=== PATIENT | female | born 1975 | race Two or more races ===

== ENCOUNTER 2017-03-14 11:59 | Inpatient (IN) | payer MEDICAID ==
[~2017-03-14] VITALS: Ht 154.9 cm; Wt 96.3 kg
[~2017-03-14 11:59] MED LIST: INSUINJ2 SC; INSUINJ47 IJ
[2017-03-14] MEDS ORDERED: IBUPROFEN 600 MG TAB PO ONE (12:15)
[2017-03-14 12:29] LABS: Urine Bilirubin Negative (Negative); Urine Blood TRACE /uL (Negative); Urine Color Yellow (Yellow); Urine RBC 3 /hpf (0 - 4); Urine Squamous Epithelial Cell FEW /hpf (<5); Urine Urobilinogen Normal (Negative)
[2017-03-14 12:30] LABS: Urine Glucose 4+ mg/dL (Normal); Urine Ketone 1+ (Negative); Urine Nitrite POSITIVE (Negative)
[2017-03-14] MEDS ORDERED: SODIUM CHLORIDE 0.9% 1,000 ML IV ONE ×2 (12:33→13:19)
[2017-03-14 12:42] LABS: Basophils # (auto) 0 uL; Basophils % (auto) 0.2 % (0.0-2.0); CONDITION Y; Eosinophils # (auto) 0 uL; Hematocrit 36.4 % (36.0-46.0); Hemoglobin 12.4 g/dL (12.2-16.2); Lymphocytes # (auto) 1.3 uL; Lymphocytes % (auto) 7.2 % (10.0-50.0); Mean Corpuscular Hemoglobin 27.1 pg (28.0-32.0); Mean Corpuscular Hgb Conc. 34.1 g/dL (32.0-36.0); Mean Corpuscular Volume 79.6 fL (80.0-100.0); Mean Platelet Volume 9.6 fL (7.4-10.4); Monocytes # (auto) 0.8 uL; Monocytes % (auto) 4.5 % (0.0-12.0); Neutrophils # (auto) 16.4 uL; Neutrophils % (auto) 88.1 % (37.0-80.0); Platelet Count (auto) 353 10^3/uL (140-450); Red Cell Distribution Width 16.9 % (11.6-16.0); White Blood Cell 18.6 10^3/uL (4.4-10.8)
[2017-03-14 12:53] LABS: Albumin 3.2 g/dL (3.4-5.0); BUN/Creatinine Ratio 10.8; Calcium 8.5 mg/dL (8.5-10.1); Potassium 3.2 mmol/L (3.5-5.1)
[2017-03-14 12:55] LABS: Bilirubin, Total 0.9 mg/dL (0.2-1.0); Total Protein 8.2 g/dL (6.4-8.2)
[2017-03-14] MEDS ORDERED: POTASSIUM CHL 10% (20 MEQ/15ML) ORAL SOLN PO ONE (13:30)
[2017-03-14] MEDS ORDERED: cefTRIAXone 1GM/50ML D5W 50 ML IV ONE (13:30)
[2017-03-14] MEDS: SODIUM CHLORIDE 0.9% 1,000 ML IV SCH (14:30)
[2017-03-14] MEDS ORDERED: LORazepam 0.5 MG TAB PO PRN (15:45)
[2017-03-14] MEDS ORDERED: LACTULOSE 20Gm/30ML SOLN PO PRN (15:45)
[2017-03-14] MEDS ORDERED: TEMAZEPAM 15 MG CAP PO PRN (15:45)
[2017-03-14] MEDS ORDERED: MORPHINE SULFATE 4 MG/ML SYRG IV PRN (15:45)
[2017-03-14] MEDS ORDERED: PROMETHAZINE HCL 25 MG/ML 1ML IV PRN (15:45)
[2017-03-14] MEDS ORDERED: DEXTROSE (50%) 50ML SYRG IV PRN (15:45)
[2017-03-14] MEDS ORDERED: NITROGLYCERIN 0.4 MG SL TAB SL PRN (15:45)
[2017-03-14] MEDS: InsuLIN REG 1unit/0.01ml Soln (100units/ml) SC SCH ×3 (16:00→23:39)
[2017-03-14] MEDS: ENOXAPARIN SOD 40 MG/0.4 ML SYRINGE SC SCH (16:00)
[2017-03-14] MEDS: ACCU-CHEK COMFORT CURVE STRIP VI SCH ×3 (16:00→23:38)
[2017-03-14 18:49] VITALS: BP 136/82
[2017-03-14] MEDS: HYDROcodone-ACET 5/325MG TAB PO PRN (20:05)
[2017-03-14 22:00] VITALS: BP 136/82
[2017-03-14] MEDS: ACETAMINOPHEN 500 MG TAB PO PRN (22:08)
[2017-03-14] MEDS ORDERED: GLIM2TAB33 PO (22:49)
[2017-03-14] MEDS ORDERED: LISI-646 PO (22:49)
[2017-03-14] MEDS ORDERED: NIFE30TA76 PO (22:49)
[2017-03-14] MEDS ORDERED: INSLANTI SC (22:49)
[2017-03-15] MEDS: SODIUM CHLORIDE 0.9% 1,000 ML IV SCH ×4 (02:10→20:48)
[2017-03-15] MEDS: ACETAMINOPHEN 500 MG TAB PO PRN ×2 (03:49→23:50)
[2017-03-15] MEDS: ACCU-CHEK COMFORT CURVE STRIP VI SCH ×6 (04:00→23:34)
[2017-03-15] MEDS: HYDROcodone-ACET 5/325MG TAB PO PRN ×3 (04:00→17:50)
[2017-03-15] MEDS: InsuLIN REG 1unit/0.01ml Soln (100units/ml) SC SCH ×6 (04:01→23:33)
[2017-03-15] MEDS ORDERED: LEVOFLOXACIN 500MG 100 ML IV ONE ×2 (04:13→04:15)
[2017-03-15 05:00] VITALS: BP 142/86
[2017-03-15 06:42] LABS: Basophils # (auto) 0 uL; CONDITION Y; Eosinophils # (auto) 0 uL; Hematocrit 33.8 % (36.0-46.0); Hemoglobin 11.5 g/dL (12.2-16.2); Lymphocytes # (auto) 0.9 uL; Lymphocytes % (auto) 6.3 % (10.0-50.0); Mean Corpuscular Hemoglobin 27.1 pg (28.0-32.0); Mean Corpuscular Volume 79.7 fL (80.0-100.0); Mean Platelet Volume 10.2 fL (7.4-10.4); Monocytes # (auto) 0.6 uL; Monocytes % (auto) 3.9 % (0.0-12.0); Neutrophils # (auto) 13.1 uL; Neutrophils % (auto) 89.8 % (37.0-80.0); Platelet Count (auto) 272 10^3/uL (140-450); SUSPECT SEE PRINTOUT; White Blood Cell 14.6 10^3/uL (4.4-10.8)
[2017-03-15 07:04] LABS: Albumin 2.4 g/dL (3.4-5.0); BUN/Creatinine Ratio 14.9; Bilirubin, Total 0.9 mg/dL (0.2-1.0); Calcium 8.1 mg/dL (8.5-10.1); Potassium 3.2 mmol/L (3.5-5.1); Total Protein 6.9 g/dL (6.4-8.2)
[2017-03-15] MEDS ORDERED: PIPERACILLIN-TAZOB 3.375GM 100 ML IV ONE (08:30)
[2017-03-15 09:00] VITALS: BP 126/70
[2017-03-15] MEDS: ENOXAPARIN SOD 40 MG/0.4 ML SYRINGE SC SCH (09:26)
[2017-03-15] MEDS: PANTOPRAZOLE 40 MG TAB PO SCH (09:26)
[2017-03-15 13:00] VITALS: BP 118/74
[2017-03-15] MEDS: PIPERACILLIN-TAZOB 3.375GM 100 ML IV SCH ×2 (15:48→20:29)
[2017-03-15 17:00] VITALS: BP 123/88
[2017-03-15 20:00] VITALS: BP 130/80
[2017-03-15 22:00] VITALS: BP 130/80
[2017-03-15] MEDS ORDERED: POTASSIUM CHL 20 Meq TABLET PO ONE (22:30)
[2017-03-15] MEDS: MORPHINE SULFATE 4 MG/ML SYRG IV PRN (23:04)
[2017-03-16] MEDS: PIPERACILLIN-TAZOB 3.375GM 100 ML IV SCH ×4 (04:56→20:29)
[2017-03-16] MEDS: ACCU-CHEK COMFORT CURVE STRIP VI SCH ×6 (04:57→23:51)
[2017-03-16] MEDS: InsuLIN REG 1unit/0.01ml Soln (100units/ml) SC SCH ×6 (04:57→23:51)
[2017-03-16 05:00] VITALS: BP 136/81
[2017-03-16] MEDS: SODIUM CHLORIDE 0.9% 1,000 ML IV SCH ×3 (07:35→23:35)
[2017-03-16 08:00] VITALS: BP 133/76
[2017-03-16] MEDS: ACETAMINOPHEN 500 MG TAB PO PRN ×3 (08:14→23:53)
[2017-03-16] MEDS: PANTOPRAZOLE 40 MG TAB PO SCH (09:01)
[2017-03-16] MEDS: ENOXAPARIN SOD 40 MG/0.4 ML SYRINGE SC SCH (09:02)
[2017-03-16] MEDS ORDERED: LEVOFLOXACIN 500MG 100 ML IV SCH (10:00)
[2017-03-16 13:00] VITALS: BP 122/63
[2017-03-16 16:50] VITALS: BP 144/70
[2017-03-16 20:00] VITALS: BP 141/73
[2017-03-16 21:11] VITALS: BP 141/73
[2017-03-16] MEDS ORDERED: DEXTROSE (50%) 50ML SYRG IV PRN (23:15)
[2017-03-17] MEDS ORDERED: ACCU-CHEK COMFORT CURVE STRIP VI SCH ×2
[2017-03-17] MEDS: PIPERACILLIN-TAZOB 3.375GM 100 ML IV SCH ×4 (02:34→20:46)
[2017-03-17 05:33] VITALS: BP 137/72
[2017-03-17] MEDS: InsuLIN REG 1unit/0.01ml Soln (100units/ml) SC SCH ×4 (05:52→23:44)
[2017-03-17] MEDS: GLIMEPIRIDE 2 MG TAB PO SCH (06:39)
[2017-03-17] MEDS: ACCU-CHEK COMFORT CURVE STRIP VI SCH ×4 (07:07→23:44)
[2017-03-17] MEDS: SODIUM CHLORIDE 0.9% 1,000 ML IV SCH ×2 (07:35→16:26)
[2017-03-17 08:00] VITALS: BP 151/74
[2017-03-17] MEDS: PANTOPRAZOLE 40 MG TAB PO SCH (09:30)
[2017-03-17] MEDS: NIFEdipine ER 30 MG TAB PO SCH (09:30)
[2017-03-17] MEDS: ENOXAPARIN SOD 40 MG/0.4 ML SYRINGE SC SCH (09:31)
[2017-03-17] MEDS: LISINOPRIL 10 MG TAB PO SCH (09:31)
[2017-03-17 09:35] VITALS: BP 151/74
[2017-03-17] MEDS ORDERED: INSULIN DETEMIR(LEVEMIR) 1unit/0.01ml Soln (100units/ml) SC SCH (10:00)
[2017-03-17 12:13] VITALS: BP 136/75
[2017-03-17] MEDS: ACETAMINOPHEN 500 MG TAB PO PRN (12:19)
[2017-03-17 16:35] VITALS: BP 127/71
[2017-03-17] MEDS: MORPHINE SULFATE 4 MG/ML SYRG IV PRN (19:38)
[2017-03-17 21:30] VITALS: BP 130/62
[2017-03-17] MEDS: INSULIN DETEMIR(LEVEMIR) 1unit/0.01ml Soln (100units/ml) SC SCH (21:46)
[2017-03-18] VITALS (7 sets, daily range): BP systolic 130–145; BP diastolic 62–77
[2017-03-18] MEDS: PIPERACILLIN-TAZOB 3.375GM 100 ML IV SCH ×4 (02:33→21:28)
[2017-03-18] MEDS: SODIUM CHLORIDE 0.9% 1,000 ML IV SCH ×3 (02:52→15:35)
[2017-03-18] MEDS: ACCU-CHEK COMFORT CURVE STRIP VI SCH ×3 (05:18→17:55)
[2017-03-18] MEDS: GLIMEPIRIDE 2 MG TAB PO SCH (06:04)
[2017-03-18] MEDS: InsuLIN REG 1unit/0.01ml Soln (100units/ml) SC SCH ×3 (06:05→17:55)
[2017-03-18] MEDS: ENOXAPARIN SOD 40 MG/0.4 ML SYRINGE SC SCH (10:22)
[2017-03-18] MEDS: LISINOPRIL 10 MG TAB PO SCH (10:23)
[2017-03-18] MEDS: PANTOPRAZOLE 40 MG TAB PO SCH (10:24)
[2017-03-18] MEDS: NIFEdipine ER 30 MG TAB PO SCH (10:24)
[2017-03-18] MEDS: INSULIN DETEMIR(LEVEMIR) 1unit/0.01ml Soln (100units/ml) SC SCH ×2 (10:29→21:29)
[2017-03-18] MEDS: MORPHINE SULFATE 4 MG/ML SYRG IV PRN (19:20)
[2017-03-18] MEDS: ACYCLOVIR 400 MG TAB PO SCH (21:29)
[2017-03-19] VITALS (7 sets, daily range): BP systolic 128–141; BP diastolic 70–83
[2017-03-19] MEDS: PIPERACILLIN-TAZOB 3.375GM 100 ML IV SCH (03:16)
[2017-03-19] MEDS: ACCU-CHEK COMFORT CURVE STRIP VI SCH ×4 (06:00→18:00)
[2017-03-19] MEDS: InsuLIN REG 1unit/0.01ml Soln (100units/ml) SC SCH ×4 (06:00→18:00)
[2017-03-19] MEDS: GLIMEPIRIDE 2 MG TAB PO SCH (06:37)
[2017-03-19] MEDS: SODIUM CHLORIDE 0.9% 1,000 ML IV SCH ×2 (06:37→15:35)
[2017-03-19] MEDS ORDERED: cefTRIAXone 1GM/50ML D5W 50 ML IV ONE (09:45)
[2017-03-19] MEDS: PANTOPRAZOLE 40 MG TAB PO SCH (09:56)
[2017-03-19] MEDS: LISINOPRIL 10 MG TAB PO SCH (09:57)
[2017-03-19] MEDS: NIFEdipine ER 30 MG TAB PO SCH (09:58)
[2017-03-19] MEDS: ACYCLOVIR 400 MG TAB PO SCH ×2 (09:58→21:54)
[2017-03-19] MEDS: ENOXAPARIN SOD 40 MG/0.4 ML SYRINGE SC SCH (09:59)
[2017-03-19] MEDS: INSULIN DETEMIR(LEVEMIR) 1unit/0.01ml Soln (100units/ml) SC SCH ×2 (10:17→22:24)
[2017-03-19] MEDS: MORPHINE SULFATE 4 MG/ML SYRG IV PRN (20:53)
[2017-03-20] MEDS: ACCU-CHEK COMFORT CURVE STRIP VI SCH ×3 (00:20→11:46)
[2017-03-20] MEDS: SODIUM CHLORIDE 0.9% 1,000 ML IV SCH (02:27)
[2017-03-20 05:46] VITALS: BP 117/72
[2017-03-20] MEDS: InsuLIN REG 1unit/0.01ml Soln (100units/ml) SC SCH ×4 (06:00→11:47)
[2017-03-20] MEDS: GLIMEPIRIDE 2 MG TAB PO SCH (06:31)
[2017-03-20 08:00] VITALS: BP 143/82
[2017-03-20 08:30] VITALS: BP 143/89
[2017-03-20] MEDS ORDERED: cefTRIAXone 1GM/50ML D5W 50 ML IV SCH (09:00)
[2017-03-20] MEDS: PANTOPRAZOLE 40 MG TAB PO SCH (09:06)
[2017-03-20] MEDS: NIFEdipine ER 30 MG TAB PO SCH (09:06)
[2017-03-20] MEDS: INSULIN DETEMIR(LEVEMIR) 1unit/0.01ml Soln (100units/ml) SC SCH (09:07)
[2017-03-20] MEDS: LISINOPRIL 10 MG TAB PO SCH (09:07)
[2017-03-20] MEDS: ENOXAPARIN SOD 40 MG/0.4 ML SYRINGE SC SCH (09:07)
[2017-03-20] MEDS: ACYCLOVIR 400 MG TAB PO SCH (09:07)
[2017-03-20 10:46] VITALS: BP 143/82
[2017-03-20 11:33] VITALS: BP 128/76
== END 2017-03-20 11:45 | disposition home or self-care (01) | DRG 720 ==
LOC: ER 11:59 → EDBD 11:59 → TELE 12:00 → TELE-CENTR 18:18
PROVIDERS: ADMIT Internal Medicine; ATTEND Internal Medicine
DX: A41.9 Sepsis, unspecified organism (principal); E11.65 Type 2 diabetes mellitus with hyperglycemia; N10 Acute pyelonephritis; I10 Essential (primary) hypertension; E87.6 Hypokalemia; F17.210 Nicotine dependence, cigarettes, uncomplicated; B00.9 Herpesviral infection, unspecified; E44.1 Mild protein-calorie malnutrition; Z68.41 Body mass index [BMI] 40.0-44.9, adult; E86.0 Dehydration; Z82.49 Family history of ischemic heart disease and other diseases of the circulatory system; Z83.3 Family history of diabetes mellitus; Z85.6 Personal history of leukemia; Z91.14 Patient's other noncompliance with medication regimen; E66.9 Obesity, unspecified; Z71.89 Other specified counseling; Z79.4 Long term (current) use of insulin; E87.1 Hypo-osmolality and hyponatremia
CPT/HCPCS: 36415; 71010; 74000; 76775; 80053; 80061; 81001; 81025; 82962; 83036; 83605; 83735; 84443; 85025; 85652; 87040; 87086; 93005; 94761; 96361; 96365; J0133; J0696; J1815; J1956; J2543

== ENCOUNTER 2017-04-14 00:45 | Inpatient (IN) | payer MEDICAID ==
[~2017-04-14] VITALS: Ht 152.4 cm; Wt 97.2 kg
[~2017-04-14 00:45] MED LIST changes: +GLIM2TAB33 PO; +INSLANTI SC; -INSUINJ2 SC; -INSUINJ47 IJ; +LISI-646 PO; +NIFE30TA76 PO
[2017-04-14] MEDS ORDERED: ACETAMINOPHEN 325 MG TAB PO ONE ×2 (01:23→01:30)
[2017-04-14] MEDS ORDERED: PROMETHAZINE HCL 25 MG/ML 1ML ONE (01:23)
[2017-04-14] MEDS ORDERED: SODIUM CHLORIDE 0.9% 1,000 ML IV ONE ×2 (01:30→10:45)
[2017-04-14] MEDS: PROMETHAZINE HCL 25 MG/ML 1ML IV PRN ×3 (01:44→11:13)
[2017-04-14 01:50] LABS: CONDITION Y; DEFINITIVE SEE PRINTOUT; Hematocrit 39.2 % (36.0-46.0); Hemoglobin 12.8 g/dL (12.2-16.2); Mean Corpuscular Hemoglobin 26.3 pg (28.0-32.0); Mean Corpuscular Hgb Conc. 32.6 g/dL (32.0-36.0); Mean Corpuscular Volume 80.6 fL (80.0-100.0); Mean Platelet Volume 10.3 fL (7.4-10.4); Platelet Count (auto) 278 10^3/uL (140-450); Red Cell Distribution Width 15.6 % (11.6-16.0); SUSPECT SEE PRINTOUT; White Blood Cell 18.5 10^3/uL (4.4-10.8)
[2017-04-14 02:05] LABS: Metamyelocytes % 0; Promyelocytes % 0; Reactive Lymphocytes 0
[2017-04-14 02:10] LABS: INR 1.07 (0.9-1.15); Partial Thromboplastin Time 30.1 sec (22.64-33.71); Prothrombin Time 11.7 sec (9.37-12.3)
[2017-04-14 02:13] LABS: Albumin 2.9 g/dL (3.4-5.0); Calcium 8.4 mg/dL (8.5-10.1); Magnesium 2.1 mg/dL (1.6-2.6); Potassium 3.8 mmol/L (3.5-5.1)
[2017-04-14 02:17] LABS: BUN/Creatinine Ratio 12.8; Bilirubin, Total 1.1 mg/dL (0.2-1.0); Total Protein 8.5 g/dL (6.4-8.2)
[2017-04-14] MEDS ORDERED: MORPHINE SULFATE 4 MG/ML SYRG ONE (02:30)
[2017-04-14 02:35] LABS: Myelocytes % 1; Platelet Estimate Adequate; RBC Morphology Normal
[2017-04-14] MEDS ORDERED: MORPHINE SULFATE 4 MG/ML SYRG IV ONE ×2 (02:45→07:00)
[2017-04-14] MEDS ORDERED: VANCOMYCIN 1GM/250ML D5W 250 ML IV ONE (05:45)
[2017-04-14] MEDS ORDERED: InsuLIN REG 1unit/0.01ml Soln (100units/ml) IV ONE (05:45)
[2017-04-14] MEDS ORDERED: SODIUM CHLORIDE 0.9% 2,700 ML IV ONE (06:00)
[2017-04-14] MEDS ORDERED: SODIUM CHLORIDE 0.9% 1,700 ML IV ONE (06:00)
[2017-04-14] MEDS ORDERED: ONDANSETRON HCL 4 MG/2 ML VIAL IV PRN (10:30)
[2017-04-14] MEDS ORDERED: NITROGLYCERIN 0.4 MG SL TAB SL PRN (10:30)
[2017-04-14] MEDS ORDERED: DEXTROSE (50%) 50ML SYRG IV PRN (10:45)
[2017-04-14] MEDS ORDERED: NIFEdipine ER 30 MG TAB PO ONE (10:45)
[2017-04-14] MEDS ORDERED: INSULIN DETEMIR(LEVEMIR) 1unit/0.01ml Soln (100units/ml) SC ONE (10:45)
[2017-04-14] MEDS: InsuLIN REG 1unit/0.01ml Soln (100units/ml) SC SCH ×2 (12:01→18:13)
[2017-04-14] MEDS: ACCU-CHEK COMFORT CURVE STRIP VI SCH ×2 (12:01→18:13)
[2017-04-14] MEDS: GLIMEPIRIDE 2 MG TAB PO SCH ×2 (13:00→18:13)
[2017-04-14] MEDS ORDERED: VANCOMYCIN PER PHARMACY 0 MG IV SCH (15:00)
[2017-04-14] MEDS ORDERED: PIPERACILLIN-TAZOB 3.375GM 100 ML IV ONE (15:15)
[2017-04-14 15:32] LABS: INR 1.05 (0.9-1.15); Prothrombin Time 11.4 sec (9.37-12.3)
[2017-04-14 15:38] LABS: BUN/Creatinine Ratio 19.8; Calcium 7.5 mg/dL (8.5-10.1); Potassium 3.8 mmol/L (3.5-5.1)
[2017-04-14] MEDS ORDERED: VANCOMYCIN 1,250 MG in D5W 5% 250 ML IV ONE (16:00)
[2017-04-14] MEDS ORDERED: MIDAZOLAM HCL 5 MG/ML-1ML VIAL ONE (16:21)
[2017-04-14] MEDS ORDERED: fentaNYL CITRATE 100 MCG/2 ML VL ONE (16:22)
[2017-04-14] MEDS ORDERED: LIDOCAINE 2%HCL (LOCAL ANESTH.) INJ 20ML MDV ONE (16:24)
[2017-04-14 17:00] VITALS: BP 144/71
[2017-04-14] MEDS ORDERED: PIPERACILLIN-TAZOB 3.375GM 100 ML IV SCH (18:00)
[2017-04-14 20:00] VITALS: BP 132/67
[2017-04-14] MEDS: PIPERACILLIN-TAZOB 3.375GM 100 ML IV SCH (20:43)
[2017-04-14 22:00] VITALS: BP 132/67
[2017-04-14] MEDS: MORPHINE SULF INJ 2 MG/ML SYRINGE 1ML IV PRN (22:21)
[2017-04-14] MEDS: INSULIN DETEMIR(LEVEMIR) 1unit/0.01ml Soln (100units/ml) SC SCH (22:35)
[2017-04-15] MEDS: ACCU-CHEK COMFORT CURVE STRIP VI SCH ×4 (00:25→18:16)
[2017-04-15] MEDS: InsuLIN REG 1unit/0.01ml Soln (100units/ml) SC SCH ×4 (00:29→18:00)
[2017-04-15] MEDS: MORPHINE SULF INJ 2 MG/ML SYRINGE 1ML IV PRN ×5 (02:00→20:54)
[2017-04-15] MEDS: PIPERACILLIN-TAZOB 3.375GM 100 ML IV SCH ×4 (02:00→23:23)
[2017-04-15 05:00] VITALS: BP 123/64
[2017-04-15 06:14] LABS: White Blood Cell 18.3 10^3/uL (4.4-10.8)
[2017-04-15 06:15] LABS: CONDITION Y; DEFINITIVE SEE PRINTOUT; Hematocrit 31.1 % (36.0-46.0); Hemoglobin 10.4 g/dL (12.2-16.2); Mean Corpuscular Hemoglobin 26.6 pg (28.0-32.0); Mean Corpuscular Hgb Conc. 33.3 g/dL (32.0-36.0); Mean Corpuscular Volume 79.9 fL (80.0-100.0); Mean Platelet Volume 11.5 fL (7.4-10.4); Platelet Count (auto) 227 10^3/uL (140-450); Red Cell Distribution Width 15.9 % (11.6-16.0); SUSPECT SEE PRINTOUT
[2017-04-15 06:53] LABS: Metamyelocytes % 0; Myelocytes % 0; Promyelocytes % 0; Reactive Lymphocytes 0
[2017-04-15 07:08] LABS: BUN/Creatinine Ratio 19.1; Bilirubin, Total 0.5 mg/dL (0.2-1.0); Calcium 7.6 mg/dL (8.5-10.1); Potassium 3.2 mmol/L (3.5-5.1); Total Protein 6.6 g/dL (6.4-8.2)
[2017-04-15 08:00] VITALS: BP 131/70
[2017-04-15] MEDS: VANCOMYCIN 1,250 MG in D5W 5% 250 ML IV SCH ×2 (08:38→20:45)
[2017-04-15] MEDS: GLIMEPIRIDE 2 MG TAB PO SCH ×3 (08:49→18:00)
[2017-04-15 09:00] VITALS: BP 131/70
[2017-04-15 09:15] LABS: Hypochromia Slight; Platelet Estimate Adequate
[2017-04-15] MEDS ORDERED: NIFEdipine ER 30 MG TAB PO SCH (10:00)
[2017-04-15] MEDS: LISINOPRIL 20 MG TAB PO SCH (10:56)
[2017-04-15] MEDS: LACTULOSE 20Gm/30ML SOLN PO SCH (11:06)
[2017-04-15] MEDS: PROMETHAZINE HCL 25 MG/ML 1ML IV PRN ×2 (12:46→20:55)
[2017-04-15 13:00] VITALS: BP 115/60
[2017-04-15 18:47] LABS: Urine Bilirubin Negative (Negative); Urine Blood 2+ /uL (Negative); Urine Color Yellow (Yellow); Urine Glucose Normal (Normal); Urine Ketone Negative (Negative); Urine Nitrite Negative (Negative); Urine RBC 18 /hpf (0 - 4); Urine Squamous Epithelial Cell FEW /hpf (<5); Urine WBC Clumps PRESENT /hpf (None Seen); Urine pH 5.5 (5.0-8.0)
[2017-04-15 20:00] VITALS: BP 121/93
[2017-04-15] MEDS: INSULIN DETEMIR(LEVEMIR) 1unit/0.01ml Soln (100units/ml) SC SCH (21:37)
[2017-04-15 22:00] VITALS: BP 121/93
[2017-04-16] MEDS: ACCU-CHEK COMFORT CURVE STRIP VI SCH ×4 (00:21→16:55)
[2017-04-16] MEDS: PROMETHAZINE HCL 25 MG/ML 1ML IV PRN (01:32)
[2017-04-16] MEDS: MORPHINE SULF INJ 2 MG/ML SYRINGE 1ML IV PRN ×3 (01:32→13:41)
[2017-04-16 05:00] VITALS: BP 111/53
[2017-04-16] MEDS ORDERED: POTASSIUM CHL 20 Meq TABLET PO ONE (05:00)
[2017-04-16] MEDS: InsuLIN REG 1unit/0.01ml Soln (100units/ml) SC SCH ×4 (05:14→17:13)
[2017-04-16] MEDS: PIPERACILLIN-TAZOB 3.375GM 100 ML IV SCH ×4 (05:14→22:36)
[2017-04-16 08:58] VITALS: BP 126/72
[2017-04-16] MEDS: LACTULOSE 20Gm/30ML SOLN PO SCH (09:13)
[2017-04-16] MEDS: VANCOMYCIN 1,250 MG in D5W 5% 250 ML IV SCH ×2 (09:14→21:00)
[2017-04-16] MEDS: LISINOPRIL 20 MG TAB PO SCH (09:15)
[2017-04-16] MEDS: GLIMEPIRIDE 2 MG TAB PO SCH ×3 (09:23→16:55)
[2017-04-16 12:18] VITALS: BP 128/70
[2017-04-16 16:13] VITALS: BP 131/77
[2017-04-16] MEDS: HYDROcodone-ACET 5/325MG TAB PO PRN (21:10)
[2017-04-16] MEDS ORDERED: LEVOFLOXACIN 500 MG TAB PO ONE (21:45)
[2017-04-16] MEDS ORDERED: CEPHALEXIN 250 MG CAP PO ONE (21:45)
[2017-04-16 22:00] VITALS: BP 136/62
[2017-04-16] MEDS: INSULIN DETEMIR(LEVEMIR) 1unit/0.01ml Soln (100units/ml) SC SCH (22:35)
[2017-04-17] MEDS: ACCU-CHEK COMFORT CURVE STRIP VI SCH ×4 (00:20→18:00)
[2017-04-17] MEDS: InsuLIN REG 1unit/0.01ml Soln (100units/ml) SC SCH ×4 (00:31→18:37)
[2017-04-17] MEDS: PIPERACILLIN-TAZOB 3.375GM 100 ML IV SCH ×3 (04:32→17:35)
[2017-04-17 05:00] VITALS: BP 133/74
[2017-04-17 06:27] LABS: Basophils # (auto) 0 uL; Basophils % (auto) 0.2 % (0.0-2.0); CONDITION Y; DEFINITIVE SEE PRINTOUT; Eosinophils # (auto) 0.1 uL; Eosinophils % (auto) 0.9 % (0.0-7.0); Hematocrit 29.2 % (36.0-46.0); Hemoglobin 9.7 g/dL (12.2-16.2); Lymphocytes # (auto) 1.1 uL; Lymphocytes % (auto) 11.8 % (10.0-50.0); Mean Corpuscular Hemoglobin 26.5 pg (28.0-32.0); Mean Corpuscular Hgb Conc. 33.2 g/dL (32.0-36.0); Mean Corpuscular Volume 79.8 fL (80.0-100.0); Mean Platelet Volume 10.3 fL (7.4-10.4); Monocytes # (auto) 0.6 uL; Monocytes % (auto) 6.7 % (0.0-12.0); Neutrophils # (auto) 7.8 uL; Neutrophils % (auto) 80.4 % (37.0-80.0); Platelet Count (auto) 230 10^3/uL (140-450); Red Cell Distribution Width 15.9 % (11.6-16.0); White Blood Cell 9.7 10^3/uL (4.4-10.8)
[2017-04-17 06:47] LABS: BUN/Creatinine Ratio 15.8; Calcium 8.1 mg/dL (8.5-10.1)
[2017-04-17 06:52] LABS: Potassium 2.9 mmol/L (3.5-5.1)
[2017-04-17 08:00] VITALS: BP 117/63
[2017-04-17 08:28] VITALS: BP 117/63
[2017-04-17] MEDS: GLIMEPIRIDE 2 MG TAB PO SCH ×3 (09:00→18:36)
[2017-04-17] MEDS: VANCOMYCIN 1,250 MG in D5W 5% 250 ML IV SCH ×2 (09:00→21:42)
[2017-04-17 09:11] LABS: Albumin 1.7 g/dL (3.4-5.0); BUN/Creatinine Ratio 14.7; Bilirubin, Total 0.7 mg/dL (0.2-1.0); Calcium 8.1 mg/dL (8.5-10.1)
[2017-04-17] MEDS ORDERED: POTASSIUM CHL 20 Meq TABLET PO ONE ×2 (09:15→10:00)
[2017-04-17] MEDS: LISINOPRIL 20 MG TAB PO SCH (09:39)
[2017-04-17] MEDS: LACTULOSE 20Gm/30ML SOLN PO SCH (09:40)
[2017-04-17 13:24] VITALS: BP 138/75
[2017-04-17 16:52] VITALS: BP 130/48
[2017-04-17] MEDS: MORPHINE SULF INJ 2 MG/ML SYRINGE 1ML IV PRN ×2 (17:36→20:50)
[2017-04-17 22:00] VITALS: BP 133/84
[2017-04-17] MEDS: INSULIN DETEMIR(LEVEMIR) 1unit/0.01ml Soln (100units/ml) SC SCH (22:49)
[2017-04-18] MEDS: PIPERACILLIN-TAZOB 3.375GM 100 ML IV SCH ×5 (00:06→23:52)
[2017-04-18] MEDS: MORPHINE SULF INJ 2 MG/ML SYRINGE 1ML IV PRN ×5 (02:20→20:09)
[2017-04-18 05:00] VITALS: BP 144/79
[2017-04-18] MEDS: ACCU-CHEK COMFORT CURVE STRIP VI SCH ×4 (06:01→18:13)
[2017-04-18] MEDS: InsuLIN REG 1unit/0.01ml Soln (100units/ml) SC SCH ×4 (06:02→18:14)
[2017-04-18 06:39] LABS: Basophils # (auto) 0 uL; Basophils % (auto) 0.3 % (0.0-2.0); CONDITION Y; DEFINITIVE SEE PRINTOUT; Eosinophils # (auto) 0.1 uL; Hematocrit 30.1 % (36.0-46.0); Lymphocytes # (auto) 1.7 uL; Mean Corpuscular Hemoglobin 26.6 pg (28.0-32.0); Mean Corpuscular Hgb Conc. 33.3 g/dL (32.0-36.0); Mean Corpuscular Volume 79.8 fL (80.0-100.0); Mean Platelet Volume 10.3 fL (7.4-10.4); Monocytes # (auto) 0.8 uL; Monocytes % (auto) 7.4 % (0.0-12.0); Neutrophils # (auto) 8.7 uL; Neutrophils % (auto) 76.3 % (37.0-80.0); Platelet Count (auto) 333 10^3/uL (140-450); Red Cell Distribution Width 15.7 % (11.6-16.0); White Blood Cell 11.4 10^3/uL (4.4-10.8)
[2017-04-18 06:57] LABS: BUN/Creatinine Ratio 9.7; Calcium 7.7 mg/dL (8.5-10.1); Potassium 3.7 mmol/L (3.5-5.1)
[2017-04-18 08:00] VITALS: BP 145/78
[2017-04-18 08:03] VITALS: BP 145/78
[2017-04-18] MEDS: GLIMEPIRIDE 2 MG TAB PO SCH ×3 (09:35→18:12)
[2017-04-18] MEDS: LISINOPRIL 20 MG TAB PO SCH (09:35)
[2017-04-18] MEDS: VANCOMYCIN 1,250 MG in D5W 5% 250 ML IV SCH ×2 (09:36→21:29)
[2017-04-18] MEDS: LACTULOSE 20Gm/30ML SOLN PO SCH (09:36)
[2017-04-18] MEDS: HYDROcodone-ACET 5/325MG TAB PO PRN ×2 (11:40→18:59)
[2017-04-18 12:11] VITALS: BP 153/92
[2017-04-18 16:23] VITALS: BP 136/72
[2017-04-18] MEDS: PROMETHAZINE HCL 25 MG/ML 1ML IV PRN (18:13)
[2017-04-18 21:38] VITALS: BP 137/70
[2017-04-18] MEDS: INSULIN DETEMIR(LEVEMIR) 1unit/0.01ml Soln (100units/ml) SC SCH (21:44)
[2017-04-18] MEDS ORDERED: LIDOCAINE 1% HCL (LOCAL ANESTH.) INJ 20ML MDV ID ONE (23:00)
[2017-04-19] MEDS: MORPHINE SULF INJ 2 MG/ML SYRINGE 1ML IV PRN ×4 (01:07→21:02)
[2017-04-19] MEDS: HYDROcodone-ACET 5/325MG TAB PO PRN (03:20)
[2017-04-19 04:34] VITALS: BP 150/81
[2017-04-19] MEDS: PIPERACILLIN-TAZOB 3.375GM 100 ML IV SCH ×3 (04:41→17:35)
[2017-04-19] MEDS: InsuLIN REG 1unit/0.01ml Soln (100units/ml) SC SCH ×4 (05:45→18:00)
[2017-04-19] MEDS: ACCU-CHEK COMFORT CURVE STRIP VI SCH ×4 (05:45→18:06)
[2017-04-19 06:51] LABS: Basophils # (auto) 0.1 uL; Basophils % (auto) 0.4 % (0.0-2.0); CONDITION Y; DEFINITIVE SEE PRINTOUT; Eosinophils # (auto) 0.1 uL; Hematocrit 28.7 % (36.0-46.0); Hemoglobin 9.5 g/dL (12.2-16.2); Lymphocytes # (auto) 1.9 uL; Lymphocytes % (auto) 13.4 % (10.0-50.0); Mean Corpuscular Hemoglobin 26.5 pg (28.0-32.0); Mean Corpuscular Volume 80.1 fL (80.0-100.0); Mean Platelet Volume 9.8 fL (7.4-10.4); Monocytes % (auto) 7.2 % (0.0-12.0); Neutrophils # (auto) 10.9 uL; Platelet Count (auto) 446 10^3/uL (140-450)
[2017-04-19 08:00] VITALS: BP 128/67
[2017-04-19 08:07] VITALS: BP 128/67
[2017-04-19] MEDS: SODIUM CHLOR 0.9% PF (SALINE LOCK) 10ML VIAL IV SCH ×2 (09:41→21:55)
[2017-04-19] MEDS: LISINOPRIL 20 MG TAB PO SCH (09:41)
[2017-04-19] MEDS: LACTULOSE 20Gm/30ML SOLN PO SCH (09:41)
[2017-04-19] MEDS: VANCOMYCIN 1,250 MG in D5W 5% 250 ML IV SCH ×2 (09:42→21:44)
[2017-04-19] MEDS: GLIMEPIRIDE 2 MG TAB PO SCH ×3 (09:43→18:00)
[2017-04-19 12:02] VITALS: BP 136/75
[2017-04-19] MEDS: PROMETHAZINE HCL 25 MG/ML 1ML IV PRN ×2 (12:22→18:59)
[2017-04-19] MEDS ORDERED: FLUCONAZOLE 200MG/100ML 100 ML IV ONE (13:15)
[2017-04-19 16:29] VITALS: BP 142/69
[2017-04-19 16:58] LABS: Basophils # (auto) 0.1 uL; Basophils % (auto) 0.5 % (0.0-2.0); CONDITION Y; DEFINITIVE SEE PRINTOUT; Eosinophils # (auto) 0.1 uL; Eosinophils % (auto) 0.6 % (0.0-7.0); Hematocrit 29.2 % (36.0-46.0); Hemoglobin 9.8 g/dL (12.2-16.2); Lymphocytes # (auto) 1.6 uL; Lymphocytes % (auto) 9.8 % (10.0-50.0); Mean Corpuscular Hemoglobin 26.5 pg (28.0-32.0); Mean Corpuscular Hgb Conc. 33.6 g/dL (32.0-36.0); Mean Platelet Volume 8.9 fL (7.4-10.4); Monocytes # (auto) 0.5 uL; Monocytes % (auto) 2.9 % (0.0-12.0); Neutrophils # (auto) 14.4 uL; Neutrophils % (auto) 86.2 % (37.0-80.0); Platelet Count (auto) 522 10^3/uL (140-450); Red Cell Distribution Width 15.7 % (11.6-16.0); White Blood Cell 16.8 10^3/uL (4.4-10.8)
[2017-04-19 17:17] LABS: BUN/Creatinine Ratio 7.8; Potassium 3.9 mmol/L (3.5-5.1)
[2017-04-19] MEDS ORDERED: ACETAMINOPHEN 500 MG TAB PO PRN (17:45)
[2017-04-19] MEDS: INSULIN DETEMIR(LEVEMIR) 1unit/0.01ml Soln (100units/ml) SC SCH (21:55)
[2017-04-19 23:21] VITALS: BP 148/70
[2017-04-20] MEDS: PIPERACILLIN-TAZOB 3.375GM 100 ML IV SCH ×4 (00:16→17:00)
[2017-04-20] MEDS: ACCU-CHEK COMFORT CURVE STRIP VI SCH ×4 (05:29→18:27)
[2017-04-20 05:42] VITALS: BP 140/74
[2017-04-20] MEDS: InsuLIN REG 1unit/0.01ml Soln (100units/ml) SC SCH ×4 (06:00→18:27)
[2017-04-20 06:36] LABS: Basophils # (auto) 0.1 uL; Basophils % (auto) 0.4 % (0.0-2.0); CONDITION Y; DEFINITIVE SEE PRINTOUT; Eosinophils # (auto) 0.1 uL; Eosinophils % (auto) 0.5 % (0.0-7.0); Hemoglobin 9.8 g/dL (12.2-16.2); Lymphocytes # (auto) 2.3 uL; Lymphocytes % (auto) 13.3 % (10.0-50.0); Mean Corpuscular Hemoglobin 26.8 pg (28.0-32.0); Mean Corpuscular Hgb Conc. 33.7 g/dL (32.0-36.0); Mean Corpuscular Volume 79.6 fL (80.0-100.0); Monocytes # (auto) 0.9 uL; Monocytes % (auto) 5.2 % (0.0-12.0); Neutrophils % (auto) 80.6 % (37.0-80.0); Platelet Count (auto) 558 10^3/uL (140-450); Red Cell Distribution Width 15.8 % (11.6-16.0); White Blood Cell 17.3 10^3/uL (4.4-10.8)
[2017-04-20] MEDS: GLIMEPIRIDE 2 MG TAB PO SCH ×3 (09:00→17:12)
[2017-04-20] MEDS: PROMETHAZINE HCL 25 MG/ML 1ML IV PRN ×2 (09:43→16:05)
[2017-04-20] MEDS: VANCOMYCIN 1,250 MG in D5W 5% 250 ML IV SCH ×2 (09:45→21:17)
[2017-04-20] MEDS: MORPHINE SULF INJ 2 MG/ML SYRINGE 1ML IV PRN ×4 (09:46→21:17)
[2017-04-20] MEDS: LISINOPRIL 20 MG TAB PO SCH (09:46)
[2017-04-20 10:00] VITALS: BP 151/79
[2017-04-20] MEDS: SODIUM CHLOR 0.9% PF (SALINE LOCK) 10ML VIAL IV SCH ×2 (10:00→23:14)
[2017-04-20] MEDS: LACTULOSE 20Gm/30ML SOLN PO SCH (10:00)
[2017-04-20] MEDS ORDERED: FLUCONAZOLE 200MG/100ML 100 ML IV SCH (10:00)
[2017-04-20] MEDS ORDERED: IOHEXOL 300 MG/ML 100ML BOTTLE IJ ONE (13:21)
[2017-04-20] MEDS ORDERED: MIDAZOLAM HCL 1MG/1ML-2 ML VIAL ONE (13:24)
[2017-04-20] MEDS ORDERED: fentaNYL CITRATE 100 MCG/2 ML VL ONE (13:25)
[2017-04-20 13:54] VITALS: BP 136/71
[2017-04-20 17:21] VITALS: BP 144/78
[2017-04-20] MEDS ORDERED: BACITRACIN TOP OINT 1 UD PKG TOP SCH (18:00)
[2017-04-20] MEDS ORDERED: MUPIROCIN 2% OINT 22GM TOP SCH ×2 (18:00)
[2017-04-20] MEDS: ALBUTEROL SULF 2.5 MG/0.5ML(0.5%) NEB SOLN NEB PRN (18:57)
[2017-04-20 21:57] VITALS: BP 149/71
[2017-04-20] MEDS: MUPIROCIN 2% OINT 22GM TOP SCH (22:00)
[2017-04-20] MEDS: INSULIN DETEMIR(LEVEMIR) 1unit/0.01ml Soln (100units/ml) SC SCH (23:21)
[2017-04-21] VITALS (7 sets, daily range): BP systolic 124–151; BP diastolic 68–79
[2017-04-21] MEDS: PIPERACILLIN-TAZOB 3.375GM 100 ML IV SCH ×5 (00:58→23:43)
[2017-04-21] MEDS: MORPHINE SULF INJ 2 MG/ML SYRINGE 1ML IV PRN ×7 (03:24→23:43)
[2017-04-21] MEDS: ACCU-CHEK COMFORT CURVE STRIP VI SCH ×5 (05:31→23:43)
[2017-04-21] MEDS: InsuLIN REG 1unit/0.01ml Soln (100units/ml) SC SCH ×5 (05:32→23:43)
[2017-04-21 06:14] LABS: Basophils # (auto) 0 uL; Basophils % (auto) 0.3 % (0.0-2.0); CONDITION Y; DEFINITIVE SEE PRINTOUT; Eosinophils # (auto) 0.1 uL; Eosinophils % (auto) 1.2 % (0.0-7.0); Hematocrit 28.1 % (36.0-46.0); Hemoglobin 9.3 g/dL (12.2-16.2); Lymphocytes # (auto) 1.8 uL; Lymphocytes % (auto) 15.8 % (10.0-50.0); Mean Corpuscular Hemoglobin 26.5 pg (28.0-32.0); Mean Corpuscular Volume 80.1 fL (80.0-100.0); Mean Platelet Volume 8.9 fL (7.4-10.4); Monocytes # (auto) 0.7 uL; Monocytes % (auto) 5.7 % (0.0-12.0); Platelet Count (auto) 649 10^3/uL (140-450); Red Cell Distribution Width 15.8 % (11.6-16.0); White Blood Cell 11.7 10^3/uL (4.4-10.8)
[2017-04-21 06:29] LABS: BUN/Creatinine Ratio 8.3; Potassium 3.7 mmol/L (3.5-5.1)
[2017-04-21] MEDS: GLIMEPIRIDE 2 MG TAB PO SCH ×3 (08:11→18:53)
[2017-04-21] MEDS: VANCOMYCIN 1,250 MG in D5W 5% 250 ML IV SCH ×2 (09:14→20:37)
[2017-04-21] MEDS: LACTULOSE 20Gm/30ML SOLN PO SCH (10:00)
[2017-04-21] MEDS: SODIUM CHLOR 0.9% PF (SALINE LOCK) 10ML VIAL IV SCH ×2 (10:00→22:07)
[2017-04-21] MEDS: MUPIROCIN 2% OINT 22GM TOP SCH ×2 (10:00→22:00)
[2017-04-21] MEDS: FLUCONAZOLE 200MG/100ML 100 ML IV SCH (11:40)
[2017-04-21] MEDS: LISINOPRIL 20 MG TAB PO SCH (11:42)
[2017-04-21] MEDS: ALBUTEROL SULF 2.5 MG/0.5ML(0.5%) NEB SOLN NEB PRN (14:03)
[2017-04-21] MEDS: HYDROcodone-ACET 5/325MG TAB PO PRN (18:53)
[2017-04-21] MEDS: INSULIN DETEMIR(LEVEMIR) 1unit/0.01ml Soln (100units/ml) SC SCH (22:11)
[2017-04-22 04:00] VITALS: BP 142/74
[2017-04-22] MEDS: MORPHINE SULF INJ 2 MG/ML SYRINGE 1ML IV PRN ×6 (04:24→20:58)
[2017-04-22] MEDS: ACCU-CHEK COMFORT CURVE STRIP VI SCH ×3 (05:32→17:54)
[2017-04-22] MEDS: PIPERACILLIN-TAZOB 3.375GM 100 ML IV SCH (05:32)
[2017-04-22] MEDS: InsuLIN REG 1unit/0.01ml Soln (100units/ml) SC SCH ×3 (05:32→17:54)
[2017-04-22 06:24] LABS: Basophils # (auto) 0 uL; Basophils % (auto) 0.3 % (0.0-2.0); CONDITION Y; DEFINITIVE SEE PRINTOUT; Eosinophils # (auto) 0.2 uL; Eosinophils % (auto) 1.4 % (0.0-7.0); Hematocrit 27.6 % (36.0-46.0); Hemoglobin 9.1 g/dL (12.2-16.2); Lymphocytes # (auto) 1.9 uL; Lymphocytes % (auto) 17.2 % (10.0-50.0); Mean Corpuscular Hemoglobin 26.4 pg (28.0-32.0); Mean Corpuscular Hgb Conc. 33.2 g/dL (32.0-36.0); Mean Corpuscular Volume 79.5 fL (80.0-100.0); Mean Platelet Volume 8.4 fL (7.4-10.4); Monocytes # (auto) 0.5 uL; Monocytes % (auto) 4.4 % (0.0-12.0); Neutrophils # (auto) 8.7 uL; Neutrophils % (auto) 76.7 % (37.0-80.0); White Blood Cell 11.3 10^3/uL (4.4-10.8)
[2017-04-22 06:40] LABS: Platelet Count (auto) 752 10^3/uL (140-450)
[2017-04-22 07:44] VITALS: BP 121/77
[2017-04-22 08:00] VITALS: BP 141/68
[2017-04-22] MEDS: GLIMEPIRIDE 2 MG TAB PO SCH ×3 (08:48→17:53)
[2017-04-22] MEDS: LACTULOSE 20Gm/30ML SOLN PO SCH (10:00)
[2017-04-22] MEDS: MUPIROCIN 2% OINT 22GM TOP SCH ×2 (10:00→18:41)
[2017-04-22] MEDS: VANCOMYCIN 1,250 MG in D5W 5% 250 ML IV SCH (10:09)
[2017-04-22] MEDS: LISINOPRIL 20 MG TAB PO SCH (10:09)
[2017-04-22] MEDS: SODIUM CHLOR 0.9% PF (SALINE LOCK) 10ML VIAL IV SCH ×2 (10:10→21:33)
[2017-04-22] MEDS: FLUCONAZOLE 200MG/100ML 100 ML IV SCH (11:18)
[2017-04-22 12:11] VITALS: BP 140/60
[2017-04-22] MEDS ORDERED: ERTAPENEM 1GM IN NS 50 ML IV ONE (13:00)
[2017-04-22] MEDS: HYDROcodone-ACET 5/325MG TAB PO PRN ×2 (13:10→19:51)
[2017-04-22] MEDS: INSULIN DETEMIR(LEVEMIR) 1unit/0.01ml Soln (100units/ml) SC SCH (21:33)
[2017-04-22 22:00] VITALS: BP 138/74
[2017-04-23] MEDS: ACCU-CHEK COMFORT CURVE STRIP VI SCH ×4 (00:02→17:45)
[2017-04-23] MEDS: MORPHINE SULF INJ 2 MG/ML SYRINGE 1ML IV PRN ×6 (00:03→22:01)
[2017-04-23 05:00] VITALS: BP 145/65
[2017-04-23] MEDS: InsuLIN REG 1unit/0.01ml Soln (100units/ml) SC SCH ×4 (05:24→17:45)
[2017-04-23] MEDS: HYDROcodone-ACET 5/325MG TAB PO PRN ×2 (05:24→20:18)
[2017-04-23 06:29] LABS: Basophils # (auto) 0.1 uL; Basophils % (auto) 0.4 % (0.0-2.0); CONDITION Y; DEFINITIVE SEE PRINTOUT; Eosinophils # (auto) 0.2 uL; Eosinophils % (auto) 1.4 % (0.0-7.0); Hematocrit 30.6 % (36.0-46.0); Hemoglobin 10.1 g/dL (12.2-16.2); Lymphocytes # (auto) 2.3 uL; Lymphocytes % (auto) 18.4 % (10.0-50.0); Mean Corpuscular Hemoglobin 26.8 pg (28.0-32.0); Mean Corpuscular Hgb Conc. 33.1 g/dL (32.0-36.0); Mean Corpuscular Volume 81.1 fL (80.0-100.0); Mean Platelet Volume 8.4 fL (7.4-10.4); Monocytes # (auto) 0.5 uL; Monocytes % (auto) 4.4 % (0.0-12.0); Neutrophils # (auto) 9.3 uL; Neutrophils % (auto) 75.4 % (37.0-80.0); Red Cell Distribution Width 15.5 % (11.6-16.0); White Blood Cell 12.3 10^3/uL (4.4-10.8)
[2017-04-23 06:50] LABS: Platelet Count (auto) 869 10^3/uL (140-450)
[2017-04-23 08:00] VITALS: BP 145/75
[2017-04-23 08:31] VITALS: BP 145/75
[2017-04-23] MEDS: LACTULOSE 20Gm/30ML SOLN PO SCH (10:00)
[2017-04-23] MEDS: MUPIROCIN 2% OINT 22GM TOP SCH ×2 (10:00→22:01)
[2017-04-23] MEDS: SODIUM CHLOR 0.9% PF (SALINE LOCK) 10ML VIAL IV SCH ×2 (10:00→22:01)
[2017-04-23] MEDS: FLUCONAZOLE 200MG/100ML 100 ML IV SCH (10:44)
[2017-04-23] MEDS: LISINOPRIL 20 MG TAB PO SCH (10:45)
[2017-04-23] MEDS: GLIMEPIRIDE 2 MG TAB PO SCH ×3 (12:55→17:42)
[2017-04-23 13:41] VITALS: BP 142/80
[2017-04-23] MEDS: ERTAPENEM 1GM IN NS 50 ML IV SCH (15:02)
[2017-04-23 16:40] VITALS: BP 157/74
[2017-04-23 22:00] VITALS: BP 146/73
[2017-04-23] MEDS: INSULIN DETEMIR(LEVEMIR) 1unit/0.01ml Soln (100units/ml) SC SCH (22:00)
[2017-04-23] MEDS ORDERED: TEMAZEPAM 15 MG CAP PO PRN (22:45)
[2017-04-24] MEDS: InsuLIN REG 1unit/0.01ml Soln (100units/ml) SC SCH ×3 (00:30→11:37)
[2017-04-24] MEDS: ACCU-CHEK COMFORT CURVE STRIP VI SCH ×3 (00:32→11:37)
[2017-04-24 01:54] VITALS: BP 146/73
[2017-04-24 05:00] VITALS: BP 136/71
[2017-04-24 08:46] VITALS: BP 134/80
[2017-04-24] MEDS: GLIMEPIRIDE 2 MG TAB PO SCH ×2 (08:46→12:22)
[2017-04-24] MEDS: MORPHINE SULF INJ 2 MG/ML SYRINGE 1ML IV PRN ×3 (09:23→15:52)
[2017-04-24] MEDS: ERTAPENEM 1GM IN NS 50 ML IV SCH (09:44)
[2017-04-24] MEDS: LACTULOSE 20Gm/30ML SOLN PO SCH ×2 (09:44→09:56)
[2017-04-24] MEDS: SODIUM CHLOR 0.9% PF (SALINE LOCK) 10ML VIAL IV SCH (09:45)
[2017-04-24] MEDS: LISINOPRIL 20 MG TAB PO SCH (09:45)
[2017-04-24] MEDS: MUPIROCIN 2% OINT 22GM TOP SCH (09:45)
[2017-04-24] MEDS: FLUCONAZOLE 200MG/100ML 100 ML IV SCH (11:14)
[2017-04-24 12:32] VITALS: BP 154/73
[2017-04-24 15:34] VITALS: BP 134/80
[2017-04-24 16:41] VITALS: BP 158/77
== END 2017-04-24 17:54 | DRG 469 ==
LOC: EDBD 00:45 → ER 00:47 → TELE 00:48 → TELE-E-ADS 13:42 → TELE-EAST 15:38
PROVIDERS: ADMIT Internal Medicine; ATTEND Internal Medicine
PROC: 0T903ZZ Drainage of Right Kidney, Percutaneous Approach (ICD-10-PCS; principal; 2017-04-20)
DX: N17.0 Acute kidney failure with tubular necrosis (principal); E11.40 Type 2 diabetes mellitus with diabetic neuropathy, unspecified; E44.0 Moderate protein-calorie malnutrition; E66.01 Morbid (severe) obesity due to excess calories; N15.1 Renal and perinephric abscess; I10 Essential (primary) hypertension; F17.210 Nicotine dependence, cigarettes, uncomplicated; E11.9 Type 2 diabetes mellitus without complications; K59.09 Other constipation; N12 Tubulo-interstitial nephritis, not specified as acute or chronic
CPT/HCPCS: 10022; 36415; 36569; 71010; 74150; 74176; 74177; 77012; 80048; 80053; 80202; 81001; 82962; 83605; 83690; 83735; 84702; 85007; 85025; 85027; 85610; 85730; 87040; 87077; 87081; 87086; 87186; 87205; 94640; 94761; 96365; 96375; 96376; C1729; J1335; J1450; J1815; J2250; J2405; J2543; J7060

== ENCOUNTER 2017-04-29 10:49 | Inpatient (IN) | payer MEDICAID ==
[~2017-04-29] VITALS: Ht 152.4 cm; Wt 98.3 kg
[2017-04-29] MEDS ORDERED: LIDOCAINE 2%HCL (LOCAL ANESTH.) INJ 20ML MDV ONE (11:02)
[2017-04-29] MEDS ORDERED: MIDAZOLAM HCL 1MG/1ML-2 ML VIAL ONE (11:28)
[2017-04-29] MEDS ORDERED: FLUMAZENIL 0.1 MG/ML INJ 10ML MDV IV ONE (11:28)
[2017-04-29] MEDS ORDERED: NALOXONE HCL 1MG/ML 2ML SYRINGE ONE (11:28)
[2017-04-29] MEDS ORDERED: fentaNYL CITRATE 100 MCG/2 ML VL ONE (11:29)
[2017-04-29 11:43] LABS: Basophils # (auto) 0.1 uL; CONDITION Y; DEFINITIVE SEE PRINTOUT; Eosinophils # (auto) 0.1 uL; Eosinophils % (auto) 0.7 % (0.0-7.0); Hematocrit 32.8 % (36.0-46.0); Hemoglobin 10.8 g/dL (12.2-16.2); Lymphocytes % (auto) 23.8 % (10.0-50.0); Mean Platelet Volume 7.6 fL (7.4-10.4); Monocytes # (auto) 0.5 uL; Neutrophils % (auto) 70.5 % (37.0-80.0); Red Cell Distribution Width 15.6 % (11.6-16.0); White Blood Cell 12.7 10^3/uL (4.4-10.8)
[2017-04-29 11:53] LABS: Albumin 2.6 g/dL (3.4-5.0); BUN/Creatinine Ratio 11.8; Bilirubin, Total 0.3 mg/dL (0.2-1.0); Calcium 9.3 mg/dL (8.5-10.1); Platelet Count (auto) 986 10^3/uL (140-450); Potassium 4.7 mmol/L (3.5-5.1); Total Protein 9.6 g/dL (6.4-8.2)
[2017-04-29] MEDS ORDERED: METOCLOPRAMIDE HCL 5MG/ml INJ 2ml VIAL IV ONE (16:15)
[2017-04-29] MEDS ORDERED: HYDROmorphone HCL 2 MG/ML VL IV ONE (16:15)
[2017-04-29] MEDS: SODIUM CHLORIDE 0.9% 1,000 ML IV SCH (17:24)
[2017-04-29] MEDS ORDERED: NITROGLYCERIN 0.4 MG SL TAB SL PRN (17:30)
[2017-04-29] MEDS ORDERED: DOCUSATE SOD 100 MG CAP PO PRN (17:30)
[2017-04-29] MEDS ORDERED: HYDROmorphone HCL 2 MG/ML VL IV PRN (20:30)
[2017-04-29 21:00] VITALS: BP 136/61
[2017-04-29] MEDS: FAMOTIDINE 20 MG TAB PO SCH (21:37)
[2017-04-29] MEDS: MORPHINE SULF INJ 2 MG/ML SYRINGE 1ML IV PRN (21:52)
[2017-04-29 22:00] VITALS: BP 138/77
[2017-04-29] MEDS ORDERED: DEXTROSE (50%) 50ML SYRG IV PRN (22:30)
[2017-04-29] MEDS: InsuLIN REG 1unit/0.01ml Soln (100units/ml) SC SCH (22:51)
[2017-04-29] MEDS: PIPERACILLIN-TAZOB 3.375GM 100 ML IV SCH (23:27)
[2017-04-29] MEDS: TEMAZEPAM 15 MG CAP PO PRN (23:45)
[2017-04-30 05:30] VITALS: BP 142/73
[2017-04-30] MEDS: PIPERACILLIN-TAZOB 3.375GM 100 ML IV SCH ×3 (05:42→17:38)
[2017-04-30] MEDS: ACCU-CHEK COMFORT CURVE STRIP VI SCH ×4 (05:51→22:17)
[2017-04-30] MEDS: InsuLIN REG 1unit/0.01ml Soln (100units/ml) SC SCH ×4 (05:51→22:17)
[2017-04-30] MEDS: MORPHINE SULF INJ 2 MG/ML SYRINGE 1ML IV PRN ×4 (05:54→21:48)
[2017-04-30 07:57] LABS: Albumin 2.2 g/dL (3.4-5.0); Bilirubin, Total 0.4 mg/dL (0.2-1.0); Calcium 8.6 mg/dL (8.5-10.1); Potassium 4.2 mmol/L (3.5-5.1); Total Protein 8.2 g/dL (6.4-8.2)
[2017-04-30 08:11] LABS: Basophils # (auto) 0.1 uL; Basophils % (auto) 0.8 % (0.0-2.0); CONDITION Y; DEFINITIVE SEE PRINTOUT; Eosinophils # (auto) 0.1 uL; Eosinophils % (auto) 0.6 % (0.0-7.0); Hematocrit 29.6 % (36.0-46.0); Hemoglobin 9.8 g/dL (12.2-16.2); Lymphocytes # (auto) 2.1 uL; Lymphocytes % (auto) 21.7 % (10.0-50.0); Mean Corpuscular Hemoglobin 25.8 pg (28.0-32.0); Mean Corpuscular Volume 78.1 fL (80.0-100.0); Mean Platelet Volume 7.8 fL (7.4-10.4); Monocytes # (auto) 0.5 uL; Monocytes % (auto) 5.2 % (0.0-12.0); Neutrophils % (auto) 71.7 % (37.0-80.0); Red Cell Distribution Width 15.4 % (11.6-16.0); White Blood Cell 9.7 10^3/uL (4.4-10.8)
[2017-04-30 08:24] LABS: Platelet Count (auto) 724 10^3/uL (140-450)
[2017-04-30 09:00] VITALS: BP 125/74
[2017-04-30] MEDS: SODIUM CHLORIDE 0.9% 1,000 ML IV SCH (09:56)
[2017-04-30] MEDS: HYDROcodone-ACET 10/325MG TAB PO PRN ×2 (10:02→17:45)
[2017-04-30] MEDS: FAMOTIDINE 20 MG TAB PO SCH ×2 (11:08→21:48)
[2017-04-30 13:00] VITALS: BP 136/70
[2017-04-30 17:16] VITALS: BP 141/80
[2017-04-30 20:00] VITALS: BP 127/76
[2017-04-30 22:00] VITALS: BP 127/76
[2017-05-01] MEDS: PIPERACILLIN-TAZOB 3.375GM 100 ML IV SCH ×4 (01:00→18:02)
[2017-05-01] MEDS: SODIUM CHLORIDE 0.9% 1,000 ML IV SCH ×2 (03:30→18:36)
[2017-05-01] MEDS: MORPHINE SULF INJ 2 MG/ML SYRINGE 1ML IV PRN ×5 (04:13→19:59)
[2017-05-01 05:00] VITALS: BP 141/77
[2017-05-01] MEDS: HYDROcodone-ACET 10/325MG TAB PO PRN ×5 (05:37→21:11)
[2017-05-01] MEDS: ACCU-CHEK COMFORT CURVE STRIP VI SCH ×4 (05:57→21:27)
[2017-05-01] MEDS: InsuLIN REG 1unit/0.01ml Soln (100units/ml) SC SCH ×4 (05:57→21:28)
[2017-05-01 08:00] VITALS: BP 120/67
[2017-05-01] MEDS: ONDANSETRON HCL 4 MG/2 ML VIAL IV PRN ×3 (10:22→18:51)
[2017-05-01] MEDS: FAMOTIDINE 20 MG TAB PO SCH ×2 (10:22→21:10)
[2017-05-01 11:37] LABS: Urine Bilirubin Negative (Negative); Urine Blood 2+ /uL (Negative); Urine Color Yellow (Yellow); Urine Glucose Normal (Normal); Urine Ketone Negative (Negative); Urine Nitrite Negative (Negative); Urine RBC 13 /hpf (0 - 4); Urine Squamous Epithelial Cell MANY /hpf (<5); Urine Urobilinogen Normal (Negative); Urine WBC Clumps PRESENT /hpf (None Seen); Urine pH 5.5 (5.0-8.0)
[2017-05-01 12:00] VITALS: BP 142/68
[2017-05-01 16:00] VITALS: BP 99/65
[2017-05-01] MEDS: TEMAZEPAM 15 MG CAP PO PRN (21:11)
[2017-05-01 21:51] VITALS: BP 130/74
[2017-05-02] MEDS: PIPERACILLIN-TAZOB 3.375GM 100 ML IV SCH ×4 (00:11→17:43)
[2017-05-02] MEDS: HYDROcodone-ACET 10/325MG TAB PO PRN ×4 (04:38→19:38)
[2017-05-02] MEDS: SODIUM CHLORIDE 0.9% 1,000 ML IV SCH (04:39)
[2017-05-02 04:46] VITALS: BP 119/65
[2017-05-02] MEDS: InsuLIN REG 1unit/0.01ml Soln (100units/ml) SC SCH ×4 (06:25→22:49)
[2017-05-02] MEDS: ACCU-CHEK COMFORT CURVE STRIP VI SCH ×4 (06:25→22:29)
[2017-05-02] MEDS: ONDANSETRON HCL 4 MG/2 ML VIAL IV PRN ×2 (08:31→17:42)
[2017-05-02] MEDS: MORPHINE SULF INJ 2 MG/ML SYRINGE 1ML IV PRN ×4 (08:31→23:14)
[2017-05-02 09:09] VITALS: BP 151/81
[2017-05-02] MEDS: FAMOTIDINE 20 MG TAB PO SCH ×2 (09:12→22:17)
[2017-05-02 13:00] VITALS: BP 131/75
[2017-05-02 17:00] VITALS: BP 123/67
[2017-05-02 21:46] VITALS: BP 131/78
[2017-05-02] MEDS: TEMAZEPAM 15 MG CAP PO PRN (22:17)
[2017-05-03] MEDS: PIPERACILLIN-TAZOB 3.375GM 100 ML IV SCH ×4 (00:34→18:06)
[2017-05-03] MEDS: SODIUM CHLORIDE 0.9% 1,000 ML IV SCH ×2 (04:16→22:20)
[2017-05-03 05:00] VITALS: BP 124/74
[2017-05-03] MEDS: HYDROcodone-ACET 10/325MG TAB PO PRN ×5 (05:12→22:20)
[2017-05-03] MEDS: ACCU-CHEK COMFORT CURVE STRIP VI SCH ×4 (05:19→22:00)
[2017-05-03] MEDS: InsuLIN REG 1unit/0.01ml Soln (100units/ml) SC SCH ×4 (05:20→22:00)
[2017-05-03 06:14] LABS: Albumin 2.3 g/dL (3.4-5.0); BUN/Creatinine Ratio 5.3; Bilirubin, Total 0.4 mg/dL (0.2-1.0); Calcium 8.9 mg/dL (8.5-10.1); Potassium 4.2 mmol/L (3.5-5.1); Total Protein 8.8 g/dL (6.4-8.2)
[2017-05-03 06:30] LABS: Basophils # (auto) 0 uL; Basophils % (auto) 0.7 % (0.0-2.0); CONDITION Y; DEFINITIVE SEE PRINTOUT; Eosinophils # (auto) 0.1 uL; Eosinophils % (auto) 2.1 % (0.0-7.0); Hematocrit 29.7 % (36.0-46.0); Hemoglobin 9.8 g/dL (12.2-16.2); Lymphocytes # (auto) 2.5 uL; Lymphocytes % (auto) 37.5 % (10.0-50.0); Mean Corpuscular Hgb Conc. 32.9 g/dL (32.0-36.0); Mean Corpuscular Volume 78.9 fL (80.0-100.0); Mean Platelet Volume 8.4 fL (7.4-10.4); Monocytes # (auto) 0.4 uL; Monocytes % (auto) 5.6 % (0.0-12.0); Neutrophils # (auto) 3.7 uL; Neutrophils % (auto) 54.1 % (37.0-80.0); Platelet Count (auto) 673 10^3/uL (140-450); Red Cell Distribution Width 15.2 % (11.6-16.0); White Blood Cell 6.8 10^3/uL (4.4-10.8)
[2017-05-03 08:40] VITALS: BP 122/74
[2017-05-03] MEDS: FAMOTIDINE 20 MG TAB PO SCH ×2 (09:23→22:21)
[2017-05-03] MEDS: ONDANSETRON HCL 4 MG/2 ML VIAL IV PRN ×3 (09:23→18:07)
[2017-05-03 11:50] VITALS: BP 140/84
[2017-05-03 16:21] VITALS: BP 146/90
[2017-05-03] MEDS: MORPHINE SULF INJ 2 MG/ML SYRINGE 1ML IV PRN (20:05)
[2017-05-03 22:00] VITALS: BP 136/80
[2017-05-03] MEDS: TEMAZEPAM 15 MG CAP PO PRN (22:21)
[2017-05-04] MEDS: PIPERACILLIN-TAZOB 3.375GM 100 ML IV SCH ×2 (00:11→06:12)
[2017-05-04] MEDS: HYDROcodone-ACET 10/325MG TAB PO PRN ×4 (04:59→21:30)
[2017-05-04 05:00] VITALS: BP 145/76
[2017-05-04] MEDS: InsuLIN REG 1unit/0.01ml Soln (100units/ml) SC SCH ×4 (06:12→21:29)
[2017-05-04] MEDS: ACCU-CHEK COMFORT CURVE STRIP VI SCH ×4 (06:12→21:29)
[2017-05-04 06:22] LABS: Basophils # (auto) 0 uL; Basophils % (auto) 0.7 % (0.0-2.0); CONDITION Y; DEFINITIVE SEE PRINTOUT; Eosinophils # (auto) 0.2 uL; Eosinophils % (auto) 2.3 % (0.0-7.0); Hematocrit 30.1 % (36.0-46.0); Hemoglobin 9.9 g/dL (12.2-16.2); Lymphocytes # (auto) 2.4 uL; Lymphocytes % (auto) 34.7 % (10.0-50.0); Mean Corpuscular Hemoglobin 25.4 pg (28.0-32.0); Mean Corpuscular Volume 76.8 fL (80.0-100.0); Mean Platelet Volume 7.9 fL (7.4-10.4); Monocytes # (auto) 0.5 uL; Monocytes % (auto) 6.5 % (0.0-12.0); Neutrophils # (auto) 3.9 uL; Neutrophils % (auto) 55.8 % (37.0-80.0); Platelet Count (auto) 639 10^3/uL (140-450); Red Cell Distribution Width 15.3 % (11.6-16.0)
[2017-05-04 06:50] LABS: Albumin 2.2 g/dL (3.4-5.0); BUN/Creatinine Ratio 3.9; Calcium 8.7 mg/dL (8.5-10.1)
[2017-05-04 06:53] LABS: Bilirubin, Total 0.2 mg/dL (0.2-1.0); Total Protein 8.5 g/dL (6.4-8.2)
[2017-05-04 09:36] VITALS: BP 130/78
[2017-05-04] MEDS: ONDANSETRON HCL 4 MG/2 ML VIAL IV PRN ×3 (09:57→21:29)
[2017-05-04] MEDS: FAMOTIDINE 20 MG TAB PO SCH ×2 (09:58→21:29)
[2017-05-04 12:33] VITALS: BP 146/86
[2017-05-04] MEDS: SODIUM CHLORIDE 0.9% 1,000 ML IV SCH (13:56)
[2017-05-04] MEDS ORDERED: cefTRIAXone 1GM/50ML D5W 50 ML IV ONE (15:30)
[2017-05-04 17:12] VITALS: BP 150/82
[2017-05-04] MEDS: TEMAZEPAM 15 MG CAP PO PRN (21:30)
[2017-05-04 22:29] VITALS: BP 152/58
[2017-05-05] MEDS: HYDROcodone-ACET 10/325MG TAB PO PRN ×4 (04:30→21:03)
[2017-05-05 05:00] VITALS: BP 156/82
[2017-05-05 05:39] LABS: Basophils # (auto) 0 uL; Basophils % (auto) 0.6 % (0.0-2.0); CONDITION Y; DEFINITIVE SEE PRINTOUT; Eosinophils # (auto) 0.2 uL; Eosinophils % (auto) 2.8 % (0.0-7.0); Hematocrit 32.9 % (36.0-46.0); Hemoglobin 10.6 g/dL (12.2-16.2); Lymphocytes # (auto) 2.9 uL; Mean Corpuscular Hemoglobin 25.3 pg (28.0-32.0); Mean Corpuscular Hgb Conc. 32.2 g/dL (32.0-36.0); Mean Corpuscular Volume 78.6 fL (80.0-100.0); Mean Platelet Volume 8.3 fL (7.4-10.4); Monocytes # (auto) 0.4 uL; Monocytes % (auto) 5.9 % (0.0-12.0); Neutrophils # (auto) 3.6 uL; Neutrophils % (auto) 49.7 % (37.0-80.0); Platelet Count (auto) 679 10^3/uL (140-450); Red Cell Distribution Width 15.3 % (11.6-16.0); White Blood Cell 7.2 10^3/uL (4.4-10.8)
[2017-05-05 05:56] LABS: Albumin 2.3 g/dL (3.4-5.0); Calcium 8.9 mg/dL (8.5-10.1); Potassium 4.1 mmol/L (3.5-5.1)
[2017-05-05 05:58] LABS: BUN/Creatinine Ratio 5.4
[2017-05-05 06:00] LABS: Bilirubin, Total 0.2 mg/dL (0.2-1.0)
[2017-05-05] MEDS: ACCU-CHEK COMFORT CURVE STRIP VI SCH ×4 (06:11→21:03)
[2017-05-05] MEDS: SODIUM CHLORIDE 0.9% 1,000 ML IV SCH (06:11)
[2017-05-05] MEDS: InsuLIN REG 1unit/0.01ml Soln (100units/ml) SC SCH ×4 (06:12→21:03)
[2017-05-05 08:00] VITALS: BP_SYST 141; BP_SYST 156; BP_DIAS 74; BP_DIAS 82
[2017-05-05] MEDS: cefTRIAXone 1GM/50ML D5W 50 ML IV SCH (08:46)
[2017-05-05] MEDS: FAMOTIDINE 20 MG TAB PO SCH ×2 (08:47→21:02)
[2017-05-05 12:00] VITALS: BP 145/73
[2017-05-05] MEDS: MORPHINE SULF INJ 2 MG/ML SYRINGE 1ML IV PRN (12:03)
[2017-05-05] MEDS: SOD CHL 0.45% 1,000 ML IV SCH ×2 (16:25→23:41)
[2017-05-05 17:00] VITALS: BP 142/70
[2017-05-05] MEDS: TEMAZEPAM 15 MG CAP PO PRN (21:02)
[2017-05-05 22:00] VITALS: BP 148/95
[2017-05-06] MEDS: HYDROcodone-ACET 10/325MG TAB PO PRN ×3 (01:00→16:14)
[2017-05-06 05:00] VITALS: BP 156/85
[2017-05-06] MEDS: SOD CHL 0.45% 1,000 ML IV SCH ×3 (05:49→21:44)
[2017-05-06] MEDS: ACCU-CHEK COMFORT CURVE STRIP VI SCH ×4 (05:49→21:43)
[2017-05-06] MEDS: InsuLIN REG 1unit/0.01ml Soln (100units/ml) SC SCH ×4 (05:50→21:43)
[2017-05-06 06:15] LABS: Basophils # (auto) 0.1 uL; Basophils % (auto) 0.6 % (0.0-2.0); CONDITION Y; DEFINITIVE SEE PRINTOUT; Eosinophils # (auto) 0.2 uL; Eosinophils % (auto) 2.4 % (0.0-7.0); Hematocrit 31.4 % (36.0-46.0); Hemoglobin 10.4 g/dL (12.2-16.2); Lymphocytes # (auto) 2.8 uL; Lymphocytes % (auto) 35.5 % (10.0-50.0); Mean Corpuscular Hemoglobin 25.8 pg (28.0-32.0); Mean Corpuscular Hgb Conc. 33.2 g/dL (32.0-36.0); Mean Corpuscular Volume 77.8 fL (80.0-100.0); Monocytes # (auto) 0.4 uL; Monocytes % (auto) 5.1 % (0.0-12.0); Neutrophils # (auto) 4.5 uL; Neutrophils % (auto) 56.4 % (37.0-80.0); Platelet Count (auto) 580 10^3/uL (140-450); Red Cell Distribution Width 15.6 % (11.6-16.0); White Blood Cell 7.9 10^3/uL (4.4-10.8)
[2017-05-06 06:36] LABS: Albumin 2.3 g/dL (3.4-5.0); BUN/Creatinine Ratio 5.2; Calcium 8.8 mg/dL (8.5-10.1); Potassium 4.1 mmol/L (3.5-5.1)
[2017-05-06 06:39] LABS: Bilirubin, Total 0.2 mg/dL (0.2-1.0); Total Protein 8.7 g/dL (6.4-8.2)
[2017-05-06 08:00] VITALS: BP 156/81
[2017-05-06] MEDS: cefTRIAXone 1GM/50ML D5W 50 ML IV SCH (09:20)
[2017-05-06] MEDS: MORPHINE SULF INJ 2 MG/ML SYRINGE 1ML IV PRN ×2 (10:05→14:58)
[2017-05-06] MEDS: ACETAMINOPHEN 325 MG TAB PO PRN (10:17)
[2017-05-06] MEDS: FAMOTIDINE 20 MG TAB PO SCH ×2 (10:17→21:44)
[2017-05-06 12:24] VITALS: BP 140/87
[2017-05-06 17:25] VITALS: BP 151/74
[2017-05-06] MEDS: PROMETHAZINE HCL 25 MG/ML 1ML IV PRN (17:54)
[2017-05-06 22:06] VITALS: BP 158/87
[2017-05-07] MEDS: MORPHINE SULF INJ 2 MG/ML SYRINGE 1ML IV PRN ×4 (04:59→19:13)
[2017-05-07] MEDS: HYDROcodone-ACET 10/325MG TAB PO PRN ×3 (05:06→20:00)
[2017-05-07 05:19] VITALS: BP 160/93
[2017-05-07 05:19] LABS: Basophils # (auto) 0 uL; Basophils % (auto) 0.6 % (0.0-2.0); CONDITION Y; DEFINITIVE SEE PRINTOUT; Eosinophils # (auto) 0.2 uL; Eosinophils % (auto) 2.1 % (0.0-7.0); Hematocrit 32.5 % (36.0-46.0); Hemoglobin 10.9 g/dL (12.2-16.2); Lymphocytes # (auto) 2.6 uL; Lymphocytes % (auto) 33.2 % (10.0-50.0); Mean Corpuscular Hemoglobin 25.8 pg (28.0-32.0); Mean Corpuscular Hgb Conc. 33.4 g/dL (32.0-36.0); Mean Corpuscular Volume 77.3 fL (80.0-100.0); Mean Platelet Volume 7.9 fL (7.4-10.4); Monocytes # (auto) 0.4 uL; Monocytes % (auto) 5.4 % (0.0-12.0); Neutrophils # (auto) 4.5 uL; Neutrophils % (auto) 58.7 % (37.0-80.0); Platelet Count (auto) 549 10^3/uL (140-450); Red Cell Distribution Width 15.7 % (11.6-16.0); White Blood Cell 7.8 10^3/uL (4.4-10.8)
[2017-05-07 05:34] LABS: Albumin 2.4 g/dL (3.4-5.0); BUN/Creatinine Ratio 5.7; Calcium 8.7 mg/dL (8.5-10.1)
[2017-05-07 05:37] LABS: Bilirubin, Total 0.3 mg/dL (0.2-1.0); Total Protein 8.7 g/dL (6.4-8.2)
[2017-05-07] MEDS: ACCU-CHEK COMFORT CURVE STRIP VI SCH ×4 (06:22→21:28)
[2017-05-07] MEDS: SOD CHL 0.45% 1,000 ML IV SCH ×3 (06:22→23:53)
[2017-05-07] MEDS: InsuLIN REG 1unit/0.01ml Soln (100units/ml) SC SCH ×4 (06:26→21:28)
[2017-05-07 09:00] VITALS: BP 162/97
[2017-05-07] MEDS: cefTRIAXone 1GM/50ML D5W 50 ML IV SCH (10:00)
[2017-05-07] MEDS: FAMOTIDINE 20 MG TAB PO SCH ×2 (10:14→21:28)
[2017-05-07] MEDS: PROMETHAZINE HCL 25 MG/ML 1ML IV PRN ×3 (12:00→17:30)
[2017-05-07 13:30] VITALS: BP 153/83
[2017-05-07 17:13] VITALS: BP 149/81
[2017-05-07] MEDS ORDERED: LISINOPRIL 10 MG TAB PO ONE (20:15)
[2017-05-07] MEDS: TEMAZEPAM 15 MG CAP PO PRN (21:29)
[2017-05-07 22:25] VITALS: BP 163/82
[2017-05-08 05:22] VITALS: BP 152/92
[2017-05-08 05:52] LABS: Basophils # (auto) 0 uL; Basophils % (auto) 0.5 % (0.0-2.0); CONDITION Y; DEFINITIVE SEE PRINTOUT; Eosinophils # (auto) 0.2 uL; Eosinophils % (auto) 3.1 % (0.0-7.0); Hematocrit 32.9 % (36.0-46.0); Hemoglobin 10.6 g/dL (12.2-16.2); Lymphocytes # (auto) 2.6 uL; Lymphocytes % (auto) 35.4 % (10.0-50.0); Mean Corpuscular Hemoglobin 25.6 pg (28.0-32.0); Mean Corpuscular Hgb Conc. 32.3 g/dL (32.0-36.0); Mean Corpuscular Volume 79.3 fL (80.0-100.0); Mean Platelet Volume 8.1 fL (7.4-10.4); Monocytes # (auto) 0.4 uL; Platelet Count (auto) 489 10^3/uL (140-450); Red Cell Distribution Width 15.6 % (11.6-16.0); White Blood Cell 7.2 10^3/uL (4.4-10.8)
[2017-05-08 06:20] LABS: Albumin 2.3 g/dL (3.4-5.0); BUN/Creatinine Ratio 7.8; Bilirubin, Total 0.2 mg/dL (0.2-1.0); Calcium 8.8 mg/dL (8.5-10.1); Potassium 3.9 mmol/L (3.5-5.1); Total Protein 8.3 g/dL (6.4-8.2)
[2017-05-08] MEDS: GLIMEPIRIDE 2 MG TAB PO SCH (06:35)
[2017-05-08] MEDS: INSULIN DETEMIR(LEVEMIR) 1unit/0.01ml Soln (100units/ml) SC SCH (06:35)
[2017-05-08] MEDS: ACCU-CHEK COMFORT CURVE STRIP VI SCH ×4 (06:35→22:00)
[2017-05-08] MEDS: InsuLIN REG 1unit/0.01ml Soln (100units/ml) SC SCH ×4 (06:35→22:00)
[2017-05-08] MEDS: MORPHINE SULF INJ 2 MG/ML SYRINGE 1ML IV PRN ×3 (06:42→18:19)
[2017-05-08] MEDS: HYDROcodone-ACET 10/325MG TAB PO PRN ×4 (06:43→21:30)
[2017-05-08 07:30] VITALS: BP 156/82
[2017-05-08 09:21] VITALS: BP 163/91
[2017-05-08] MEDS: cefTRIAXone 1GM/50ML D5W 50 ML IV SCH (10:51)
[2017-05-08] MEDS: FAMOTIDINE 20 MG TAB PO SCH ×2 (10:51→22:00)
[2017-05-08] MEDS: LISINOPRIL 10 MG TAB PO SCH (10:58)
[2017-05-08] MEDS: SOD CHL 0.45% 1,000 ML IV SCH ×3 (10:59→22:42)
[2017-05-08] MEDS: PROMETHAZINE HCL 25 MG/ML 1ML IV PRN ×2 (12:37→19:33)
[2017-05-08 13:07] VITALS: BP 137/70
[2017-05-08] MEDS: ACETAMINOPHEN 325 MG TAB PO PRN (14:00)
[2017-05-08 17:06] VITALS: BP 133/77
[2017-05-08 22:05] VITALS: BP 157/74
[2017-05-08] MEDS: TEMAZEPAM 15 MG CAP PO PRN (22:42)
[2017-05-09 05:19] VITALS: BP 153/89
[2017-05-09] MEDS: GLIMEPIRIDE 2 MG TAB PO SCH (05:24)
[2017-05-09] MEDS: INSULIN DETEMIR(LEVEMIR) 1unit/0.01ml Soln (100units/ml) SC SCH (05:24)
[2017-05-09] MEDS: InsuLIN REG 1unit/0.01ml Soln (100units/ml) SC SCH ×4 (05:24→22:00)
[2017-05-09] MEDS: ACCU-CHEK COMFORT CURVE STRIP VI SCH ×4 (05:37→22:36)
[2017-05-09 07:40] VITALS: BP 158/85
[2017-05-09] MEDS: SOD CHL 0.45% 1,000 ML IV SCH ×2 (08:15→16:15)
[2017-05-09 09:22] VITALS: BP 158/85
[2017-05-09] MEDS: cefTRIAXone 1GM/50ML D5W 50 ML IV SCH (09:24)
[2017-05-09] MEDS: MORPHINE SULF INJ 2 MG/ML SYRINGE 1ML IV PRN ×2 (09:32→15:14)
[2017-05-09] MEDS: FAMOTIDINE 20 MG TAB PO SCH ×2 (10:29→22:00)
[2017-05-09] MEDS: LISINOPRIL 10 MG TAB PO SCH (10:30)
[2017-05-09] MEDS: ACETAMINOPHEN 325 MG TAB PO PRN (10:43)
[2017-05-09 12:17] VITALS: BP 142/77
[2017-05-09] MEDS: HYDROcodone-ACET 10/325MG TAB PO PRN ×2 (16:57→22:36)
[2017-05-09 17:04] VITALS: BP 156/72
[2017-05-09] MEDS: PROMETHAZINE HCL 25 MG/ML 1ML IV PRN (17:08)
[2017-05-09 21:51] VITALS: BP 153/84
[2017-05-10] MEDS: SOD CHL 0.45% 1,000 ML IV SCH ×3 (00:41→16:24)
[2017-05-10 05:27] VITALS: BP 150/82
[2017-05-10] MEDS: GLIMEPIRIDE 2 MG TAB PO SCH (06:57)
[2017-05-10] MEDS: InsuLIN REG 1unit/0.01ml Soln (100units/ml) SC SCH ×4 (06:58→22:00)
[2017-05-10] MEDS: HYDROcodone-ACET 10/325MG TAB PO PRN ×3 (06:58→18:56)
[2017-05-10] MEDS: INSULIN DETEMIR(LEVEMIR) 1unit/0.01ml Soln (100units/ml) SC SCH (06:59)
[2017-05-10] MEDS: ACCU-CHEK COMFORT CURVE STRIP VI SCH ×4 (06:59→23:34)
[2017-05-10 08:00] VITALS: BP 150/82
[2017-05-10 09:00] VITALS: BP 168/89
[2017-05-10 09:05] LABS: Albumin 2.4 g/dL (3.4-5.0); BUN/Creatinine Ratio 6.1; Calcium 8.6 mg/dL (8.5-10.1); Potassium 3.9 mmol/L (3.5-5.1)
[2017-05-10 09:08] LABS: Bilirubin, Total 0.2 mg/dL (0.2-1.0); Total Protein 8.2 g/dL (6.4-8.2)
[2017-05-10] MEDS: cefTRIAXone 1GM/50ML D5W 50 ML IV SCH (09:11)
[2017-05-10] MEDS: LISINOPRIL 10 MG TAB PO SCH (09:12)
[2017-05-10] MEDS: FAMOTIDINE 20 MG TAB PO SCH ×2 (09:14→22:00)
[2017-05-10] MEDS: PROMETHAZINE HCL 25 MG/ML 1ML IV PRN (12:58)
[2017-05-10 13:00] VITALS: BP 165/84
[2017-05-10 17:00] VITALS: BP 146/71
[2017-05-10 22:03] VITALS: BP 162/77
[2017-05-11] MEDS: SOD CHL 0.45% 1,000 ML IV SCH ×3 (03:17→16:00)
[2017-05-11] MEDS: PROMETHAZINE HCL 25 MG/ML 1ML IV PRN ×3 (04:17→15:25)
[2017-05-11 05:23] VITALS: BP 163/84
[2017-05-11 05:23] LABS: Basophils # (auto) 0 uL; Basophils % (auto) 0.3 % (0.0-2.0); CONDITION Y; DEFINITIVE SEE PRINTOUT; Eosinophils # (auto) 0.3 uL; Eosinophils % (auto) 3.2 % (0.0-7.0); Hematocrit 31.4 % (36.0-46.0); Hemoglobin 10.3 g/dL (12.2-16.2); Lymphocytes # (auto) 3.1 uL; Lymphocytes % (auto) 36.4 % (10.0-50.0); Mean Corpuscular Hemoglobin 25.4 pg (28.0-32.0); Mean Corpuscular Hgb Conc. 32.7 g/dL (32.0-36.0); Mean Corpuscular Volume 77.6 fL (80.0-100.0); Mean Platelet Volume 7.7 fL (7.4-10.4); Monocytes # (auto) 0.5 uL; Monocytes % (auto) 5.5 % (0.0-12.0); Neutrophils # (auto) 4.6 uL; Neutrophils % (auto) 54.6 % (37.0-80.0); Platelet Count (auto) 540 10^3/uL (140-450); Red Cell Distribution Width 15.5 % (11.6-16.0); White Blood Cell 8.5 10^3/uL (4.4-10.8)
[2017-05-11] MEDS: HYDROcodone-ACET 10/325MG TAB PO PRN (06:05)
[2017-05-11] MEDS: ACCU-CHEK COMFORT CURVE STRIP VI SCH ×4 (06:10→21:54)
[2017-05-11] MEDS: INSULIN DETEMIR(LEVEMIR) 1unit/0.01ml Soln (100units/ml) SC SCH (06:11)
[2017-05-11] MEDS: InsuLIN REG 1unit/0.01ml Soln (100units/ml) SC SCH ×4 (06:11→22:00)
[2017-05-11] MEDS: GLIMEPIRIDE 2 MG TAB PO SCH (07:00)
[2017-05-11 08:00] VITALS: BP 153/89
[2017-05-11] MEDS: FAMOTIDINE 20 MG TAB PO SCH ×2 (10:00→21:51)
[2017-05-11] MEDS: cefTRIAXone 1GM/50ML D5W 50 ML IV SCH (10:40)
[2017-05-11] MEDS: LISINOPRIL 10 MG TAB PO SCH (10:41)
[2017-05-11 12:45] VITALS: BP 168/94
[2017-05-11] MEDS: hydrALAZINE HCL 20 MG/ML VL IV PRN (15:25)
[2017-05-11] MEDS: MORPHINE SULF INJ 2 MG/ML SYRINGE 1ML IV PRN (16:15)
[2017-05-11 16:36] VITALS: BP 185/97
[2017-05-11] MEDS: METOCLOPRAMIDE HCL 5MG/ml INJ 2ml VIAL IV PRN (18:48)
[2017-05-11 20:00] VITALS: BP 158/94
[2017-05-11 21:30] VITALS: BP 158/94
[2017-05-11] MEDS: SIMETHICONE 80 MG CHEWABLE TABLET PO SCH (21:53)
[2017-05-11] MEDS: TEMAZEPAM 15 MG CAP PO PRN (21:59)
[2017-05-12] VITALS (7 sets, daily range): BP systolic 111–169; BP diastolic 71–98
[2017-05-12] MEDS: SOD CHL 0.45% 1,000 ML IV SCH ×3 (00:15→15:01)
[2017-05-12] MEDS: PROMETHAZINE HCL 25 MG/ML 1ML IV PRN ×3 (01:27→14:07)
[2017-05-12] MEDS: MORPHINE SULF INJ 2 MG/ML SYRINGE 1ML IV PRN ×3 (01:28→06:12)
[2017-05-12 05:28] LABS: Basophils # (auto) 0.1 uL; Basophils % (auto) 0.5 % (0.0-2.0); CONDITION Y; DEFINITIVE SEE PRINTOUT; Eosinophils # (auto) 0.1 uL; Eosinophils % (auto) 0.8 % (0.0-7.0); Hematocrit 35.2 % (36.0-46.0); Hemoglobin 11.5 g/dL (12.2-16.2); Lymphocytes # (auto) 3.4 uL; Lymphocytes % (auto) 29.7 % (10.0-50.0); Mean Corpuscular Hemoglobin 25.4 pg (28.0-32.0); Mean Corpuscular Hgb Conc. 32.8 g/dL (32.0-36.0); Mean Corpuscular Volume 77.4 fL (80.0-100.0); Mean Platelet Volume 8.5 fL (7.4-10.4); Monocytes # (auto) 0.5 uL; Monocytes % (auto) 4.5 % (0.0-12.0); Neutrophils # (auto) 7.3 uL; Neutrophils % (auto) 64.5 % (37.0-80.0); Platelet Count (auto) 562 10^3/uL (140-450); Red Cell Distribution Width 16.1 % (11.6-16.0); White Blood Cell 11.4 10^3/uL (4.4-10.8)
[2017-05-12] MEDS: SIMETHICONE 80 MG CHEWABLE TABLET PO SCH ×3 (05:56→21:18)
[2017-05-12] MEDS: hydrALAZINE HCL 20 MG/ML VL IV PRN (05:56)
[2017-05-12] MEDS: GLIMEPIRIDE 2 MG TAB PO SCH (05:56)
[2017-05-12] MEDS: ACCU-CHEK COMFORT CURVE STRIP VI SCH ×4 (06:30→21:18)
[2017-05-12] MEDS: INSULIN DETEMIR(LEVEMIR) 1unit/0.01ml Soln (100units/ml) SC SCH (06:30)
[2017-05-12] MEDS: InsuLIN REG 1unit/0.01ml Soln (100units/ml) SC SCH ×4 (06:30→21:18)
[2017-05-12] MEDS: HYDROcodone-ACET 10/325MG TAB PO PRN (08:40)
[2017-05-12] MEDS: FAMOTIDINE 20 MG TAB PO SCH ×2 (08:40→21:18)
[2017-05-12] MEDS: cefTRIAXone 1GM/50ML D5W 50 ML IV SCH (08:40)
[2017-05-12] MEDS: METOCLOPRAMIDE HCL 5MG/ml INJ 2ml VIAL IV PRN ×2 (09:09→18:22)
[2017-05-12] MEDS: LISINOPRIL 10 MG TAB PO SCH (09:13)
[2017-05-12] MEDS ORDERED: amLODIPine BESYLATE 5 MG TAB PO ONE (12:15)
[2017-05-12] MEDS: MORPHINE SULFATE 4 MG/ML SYRG IV PRN ×3 (14:06→22:28)
[2017-05-12] MEDS: TEMAZEPAM 15 MG CAP PO PRN (23:11)
[2017-05-13] VITALS (7 sets, daily range): BP systolic 118–141; BP diastolic 67–86
[2017-05-13] MEDS: SOD CHL 0.45% 1,000 ML IV SCH ×3 (00:15→16:15)
[2017-05-13] MEDS: SIMETHICONE 80 MG CHEWABLE TABLET PO SCH ×3 (05:42→21:41)
[2017-05-13] MEDS: GLIMEPIRIDE 2 MG TAB PO SCH (06:14)
[2017-05-13] MEDS: InsuLIN REG 1unit/0.01ml Soln (100units/ml) SC SCH ×4 (06:14→21:49)
[2017-05-13] MEDS: ACCU-CHEK COMFORT CURVE STRIP VI SCH ×4 (06:15→21:49)
[2017-05-13] MEDS: INSULIN DETEMIR(LEVEMIR) 1unit/0.01ml Soln (100units/ml) SC SCH (06:15)
[2017-05-13 06:17] LABS: Basophils # (auto) 0 uL; Basophils % (auto) 0.5 % (0.0-2.0); CONDITION Y; DEFINITIVE SEE PRINTOUT; Eosinophils # (auto) 0.3 uL; Eosinophils % (auto) 3.4 % (0.0-7.0); Hematocrit 33.5 % (36.0-46.0); Hemoglobin 10.8 g/dL (12.2-16.2); Lymphocytes # (auto) 3.4 uL; Lymphocytes % (auto) 42.5 % (10.0-50.0); Mean Corpuscular Hemoglobin 25.1 pg (28.0-32.0); Mean Corpuscular Hgb Conc. 32.2 g/dL (32.0-36.0); Mean Corpuscular Volume 77.8 fL (80.0-100.0); Mean Platelet Volume 8.4 fL (7.4-10.4); Monocytes # (auto) 0.6 uL; Monocytes % (auto) 7.1 % (0.0-12.0); Neutrophils # (auto) 3.7 uL; Neutrophils % (auto) 46.5 % (37.0-80.0); Platelet Count (auto) 536 10^3/uL (140-450); Red Cell Distribution Width 16.5 % (11.6-16.0)
[2017-05-13] MEDS: cefTRIAXone 1GM/50ML D5W 50 ML IV SCH (09:01)
[2017-05-13] MEDS: FAMOTIDINE 20 MG TAB PO SCH ×2 (09:01→21:41)
[2017-05-13] MEDS: amLODIPine BESYLATE 5 MG TAB PO SCH (09:02)
[2017-05-13] MEDS: LISINOPRIL 10 MG TAB PO SCH (09:03)
[2017-05-13] MEDS: MORPHINE SULFATE 4 MG/ML SYRG IV PRN ×4 (09:18→21:42)
[2017-05-13] MEDS: TEMAZEPAM 15 MG CAP PO PRN (21:41)
[2017-05-14] MEDS: SOD CHL 0.45% 1,000 ML IV SCH ×3 (00:15→16:15)
[2017-05-14 05:00] VITALS: BP_SYST 119; BP_SYST 90; BP_DIAS 58; BP_DIAS 72
[2017-05-14] MEDS: SIMETHICONE 80 MG CHEWABLE TABLET PO SCH ×2 (05:34→17:23)
[2017-05-14 05:42] LABS: Basophils # (auto) 0.1 uL; Basophils % (auto) 0.7 % (0.0-2.0); CONDITION Y; DEFINITIVE SEE PRINTOUT; Eosinophils # (auto) 0.3 uL; Eosinophils % (auto) 3.1 % (0.0-7.0); Hematocrit 32.2 % (36.0-46.0); Hemoglobin 10.4 g/dL (12.2-16.2); Lymphocytes # (auto) 3.5 uL; Lymphocytes % (auto) 43.2 % (10.0-50.0); Mean Corpuscular Hemoglobin 24.9 pg (28.0-32.0); Mean Corpuscular Hgb Conc. 32.3 g/dL (32.0-36.0); Mean Corpuscular Volume 77.1 fL (80.0-100.0); Mean Platelet Volume 8.6 fL (7.4-10.4); Monocytes # (auto) 0.6 uL; Monocytes % (auto) 7.5 % (0.0-12.0); Neutrophils # (auto) 3.7 uL; Neutrophils % (auto) 45.5 % (37.0-80.0); Platelet Count (auto) 530 10^3/uL (140-450); Red Cell Distribution Width 15.9 % (11.6-16.0); White Blood Cell 8.1 10^3/uL (4.4-10.8)
[2017-05-14] MEDS: InsuLIN REG 1unit/0.01ml Soln (100units/ml) SC SCH ×3 (06:11→17:00)
[2017-05-14] MEDS: INSULIN DETEMIR(LEVEMIR) 1unit/0.01ml Soln (100units/ml) SC SCH (06:11)
[2017-05-14] MEDS: ACCU-CHEK COMFORT CURVE STRIP VI SCH ×3 (06:11→17:23)
[2017-05-14] MEDS: GLIMEPIRIDE 2 MG TAB PO SCH (06:12)
[2017-05-14 07:38] VITALS: BP 134/70
[2017-05-14 08:00] VITALS: BP 134/70
[2017-05-14] MEDS: cefTRIAXone 1GM/50ML D5W 50 ML IV SCH (09:09)
[2017-05-14] MEDS: amLODIPine BESYLATE 5 MG TAB PO SCH (09:10)
[2017-05-14] MEDS: LISINOPRIL 10 MG TAB PO SCH (09:10)
[2017-05-14] MEDS: FAMOTIDINE 20 MG TAB PO SCH (09:10)
[2017-05-14] MEDS: MORPHINE SULFATE 4 MG/ML SYRG IV PRN ×2 (09:23→14:45)
[2017-05-14] MEDS: ONDANSETRON HCL 4 MG/2 ML VIAL IV PRN ×2 (10:43→10:49)
[2017-05-14] MEDS: PROMETHAZINE HCL 25 MG/ML 1ML IV PRN ×2 (10:50→17:23)
[2017-05-14 12:09] VITALS: BP 134/75
[2017-05-14 16:38] VITALS: BP 152/75
[2017-05-14 16:55] VITALS: BP 134/70
== END 2017-05-14 18:30 | disposition home health service (06) | DRG 443 ==
LOC: ER 10:49 → TELE 10:50 → TELE-CENTR 20:55 → CENTRAL 05-06 15:04
PROVIDERS: ADMIT Internal Medicine; ATTEND Internal Medicine
PROC: 0T9030Z Drainage of Right Kidney with Drainage Device, Percutaneous Approach (ICD-10-PCS; 2017-04-29)
PROC: 0TP5X0Z Removal of Drainage Device from Kidney, External Approach (ICD-10-PCS; 2017-04-29)
PROC: 02HV33Z Insertion of Infusion Device into Superior Vena Cava, Percutaneous Approach (ICD-10-PCS; principal; 2017-05-14)
PROC: 02HV33Z Insertion of Infusion Device into Superior Vena Cava, Percutaneous Approach (ICD-10-PCS; 2017-05-14)
DX: T83.028A Displacement of other urinary catheter, initial encounter (principal); N17.0 Acute kidney failure with tubular necrosis; N15.1 Renal and perinephric abscess; E44.0 Moderate protein-calorie malnutrition; Z68.41 Body mass index [BMI] 40.0-44.9, adult; E11.22 Type 2 diabetes mellitus with diabetic chronic kidney disease; R16.0 Hepatomegaly, not elsewhere classified; E11.40 Type 2 diabetes mellitus with diabetic neuropathy, unspecified; N20.0 Calculus of kidney; F17.210 Nicotine dependence, cigarettes, uncomplicated; E66.9 Obesity, unspecified; I12.9 Hypertensive chronic kidney disease with stage 1 through stage 4 chronic kidney disease, or unspecified chronic kidney disease; N18.3 Chronic kidney disease, stage 3 (moderate); D75.89 Other specified diseases of blood and blood-forming organs; G47.00 Insomnia, unspecified; K59.00 Constipation, unspecified; N12 Tubulo-interstitial nephritis, not specified as acute or chronic; Y83.8 Other surgical procedures as the cause of abnormal reaction of the patient, or of later complication, without mention of misadventure at the time of the procedure; B96.20 Unspecified Escherichia coli [E. coli] as the cause of diseases classified elsewhere; K76.0 Fatty (change of) liver, not elsewhere classified; D28.7 Benign neoplasm of other specified female genital organs; Z82.49 Family history of ischemic heart disease and other diseases of the circulatory system; Z85.6 Personal history of leukemia; Z87.440 Personal history of urinary (tract) infections; Z87.442 Personal history of urinary calculi; Z83.3 Family history of diabetes mellitus; Z91.013 Allergy to seafood; Z79.4 Long term (current) use of insulin; Z79.899 Other long term (current) drug therapy; Y92.89 Other specified places as the place of occurrence of the external cause
CPT/HCPCS: 10022; 36415; 46050; 71010; 74150; 74176; 76705; 77012; 80053; 81001; 82962; 84702; 85025; 87040; 87081; 87086; 96374; 96375; C1729; J0696; J1815; J2250; J2405; J2543

== ENCOUNTER → 2017-04-29 | Outpatient (CLI) | payer MEDICAID ==
[~2017-04-29] MED LIST changes: -NIFE30TA76 PO
== END | disposition home or self-care (01) ==
LOC: XY 10:04
PROVIDERS: ATTEND Internal Medicine
DX: R73.9 Hyperglycemia, unspecified (principal); R11.2 Nausea with vomiting, unspecified; N12 Tubulo-interstitial nephritis, not specified as acute or chronic; I10 Essential (primary) hypertension; N39.0 Urinary tract infection, site not specified; E11.9 Type 2 diabetes mellitus without complications
CPT/HCPCS: 82962

== ENCOUNTER 2017-07-30 03:21 | Emergency (ER) | payer MEDICAID ==
[~2017-07-30] VITALS: Ht 170.2 cm; Wt 90.7 kg
[2017-07-30] MEDS ORDERED: KETOROLAC TROMETH 30 MG/ML 1ML VIAL IV ONE (04:00)
[2017-07-30] MEDS ORDERED: KETOROLAC TROMETH 30 MG/ML 1ML VIAL ONE (04:13)
[2017-07-30 05:06] LABS: Basophils # (auto) 0 uL; Basophils % (auto) 0.4 % (0.0-2.0); Eosinophils # (auto) 0.1 uL; Eosinophils % (auto) 1.3 % (0.0-7.0); Hematocrit 29.9 % (36.0-46.0); Hemoglobin 9.8 g/dL (12.2-16.2); Lymphocytes # (auto) 2.7 uL; Lymphocytes % (auto) 23.9 % (10.0-50.0); Mean Corpuscular Hemoglobin 23.8 pg (28.0-32.0); Mean Corpuscular Hgb Conc. 32.7 g/dL (32.0-36.0); Mean Corpuscular Volume 72.7 fL (80.0-100.0); Mean Platelet Volume 8.6 fL (6.9-10.8); Monocytes # (auto) 0.6 uL; Monocytes % (auto) 5.4 % (0.0-12.0); Neutrophils # (auto) 7.9 uL; Nucleated Red Blood Cells % 0.1 %; Platelet Count (auto) 419 10^3/uL (140-450); Red Cell Distribution Width 16.9 % (11.8-14.3); White Blood Cell 11.4 10^3/uL (4.4-10.8)
[2017-07-30 05:21] LABS: Albumin 2.8 g/dL (3.4-5.0); BUN/Creatinine Ratio 17.1; Bilirubin, Total 0.3 mg/dL (0.2-1.0); Calcium 8.8 mg/dL (8.5-10.1); Magnesium 2.3 mg/dL (1.6-2.6); Potassium 3.1 mmol/L (3.5-5.1); Total Protein 8.4 g/dL (6.4-8.2)
[2017-07-30 07:55] VITALS: BP 143/90
[2017-07-30 08:20] LABS: Urine Bilirubin Negative (Negative); Urine Blood 2+ /uL (Negative); Urine Color PINK (Yellow); Urine Glucose Normal (Normal); Urine Ketone TRACE (Negative); Urine Mucus FEW (None Seen); Urine Nitrite POSITIVE (Negative); Urine RBC 8 /hpf (0 - 4); Urine Squamous Epithelial Cell FEW /hpf (<5); Urine pH 5.5 (5.0-8.0)
[2017-07-30] MEDS: POTASSIUM CHL 10% (20 MEQ/15ML) 15ml ORAL SOLN PO ONE ×2 (08:52→09:05)
== END 2017-07-30 09:08 | disposition home or self-care (01) ==
LOC: EDBD 03:21 → ER 03:27
DX: N12 Tubulo-interstitial nephritis, not specified as acute or chronic (principal); F17.210 Nicotine dependence, cigarettes, uncomplicated; I10 Essential (primary) hypertension; E11.9 Type 2 diabetes mellitus without complications; Z79.4 Long term (current) use of insulin; Z91.013 Allergy to seafood; Z87.442 Personal history of urinary calculi
CPT/HCPCS: 36415; 74176; 80053; 81001; 81025; 82962; 83735; 85025; 96374; 99285; J1885

== ENCOUNTER 2017-08-17 00:45 | Emergency (ER) | payer MEDICAID ==
[~2017-08-17] VITALS: Ht 152.4 cm; Wt 90.7 kg
[2017-08-17 01:27] LABS: Mean Platelet Volume 8.3 fL (6.9-10.8); White Blood Cell 11.8 10^3/uL (4.4-10.8)
[2017-08-17 01:28] LABS: Basophils # (auto) 0.1 uL; Basophils % (auto) 1.2 % (0.0-2.0); Eosinophils # (auto) 0.2 uL; Eosinophils % (auto) 1.8 % (0.0-7.0); Hematocrit 32.5 % (36.0-46.0); Hemoglobin 10.5 g/dL (12.2-16.2); Lymphocytes # (auto) 3.5 uL; Lymphocytes % (auto) 29.3 % (10.0-50.0); Mean Corpuscular Hemoglobin 23.6 pg (28.0-32.0); Mean Corpuscular Hgb Conc. 32.2 g/dL (32.0-36.0); Mean Corpuscular Volume 73.2 fL (80.0-100.0); Monocytes # (auto) 0.5 uL; Monocytes % (auto) 4.5 % (0.0-12.0); Neutrophils # (auto) 7.5 uL; Neutrophils % (auto) 63.2 % (37.0-80.0); Nucleated Red Blood Cells % 0.1 %; Platelet Count (auto) 598 10^3/uL (140-450); Red Cell Distribution Width 17.8 % (11.8-14.3)
[2017-08-17 01:40] LABS: Albumin 3.2 g/dL (3.4-5.0); Calcium 9.1 mg/dL (8.5-10.1); Potassium 3.5 mmol/L (3.5-5.1)
[2017-08-17 01:42] LABS: BUN/Creatinine Ratio 14.5
[2017-08-17 01:45] LABS: Bilirubin, Total 0.2 mg/dL (0.2-1.0); Total Protein 9.6 g/dL (6.4-8.2)
[2017-08-17] MEDS ORDERED: MORPHINE SULF INJ 2 MG/ML SYRINGE 1ML IV ONE ×2 (01:45→04:00)
[2017-08-17] MEDS ORDERED: ONDANSETRON HCL 4 MG/2 ML VIAL IV ONE (01:45)
[2017-08-17 01:46] LABS: Urine Bilirubin Negative (Negative); Urine Blood Negative /uL (Negative); Urine Color Yellow (Yellow); Urine Glucose Normal (Normal); Urine Ketone Negative (Negative); Urine Nitrite Negative (Negative); Urine RBC 1 /hpf (0 - 4); Urine Squamous Epithelial Cell FEW /hpf (<5); Urine Urobilinogen Normal (Negative)
[2017-08-17] MEDS ORDERED: PROMETHAZINE HCL 25 MG/ML 1ML IV ONE (02:00)
[2017-08-17] MEDS ORDERED: cloNIDine HCL 0.1 MG TAB PO ONE (04:45)
[2017-08-17 05:50] VITALS: BP 164/74
== END 2017-08-17 06:13 | disposition home or self-care (01) ==
LOC: EDBD 00:45 → ER 00:51
DX: N20.0 Calculus of kidney (principal); N83.202 Unspecified ovarian cyst, left side; N83.201 Unspecified ovarian cyst, right side; I10 Essential (primary) hypertension; E11.9 Type 2 diabetes mellitus without complications; Z87.442 Personal history of urinary calculi; Z87.440 Personal history of urinary (tract) infections; Z79.4 Long term (current) use of insulin; Z91.013 Allergy to seafood
CPT/HCPCS: 36415; 72131; 74176; 80053; 80307; 81001; 81025; 82150; 83690; 85025; 96374; 96375; 96376; 99285; J2270; J2405; J2550

== ENCOUNTER 2017-10-17 23:52 | Inpatient (IN) | payer MEDICAID ==
[~2017-10-17] VITALS: Ht 152.4 cm; Wt 97.7 kg
[2017-10-18] MEDS ORDERED: cloNIDine HCL 0.1 MG TAB PO ONE (00:15)
[2017-10-18 01:27] LABS: Eosinophils # (auto) 0.2 uL; Hematocrit 32.3 % (36.0-46.0); Hemoglobin 10.3 g/dL (12.2-16.2); Monocytes # (auto) 0.6 uL; Nucleated Red Blood Cells % 0.1 %; Red Cell Distribution Width 18.7 % (11.8-14.3)
[2017-10-18 01:29] LABS: Basophils # (auto) 0.2 uL; Basophils % (auto) 1.4 % (0.0-2.0); Eosinophils % (auto) 1.8 % (0.0-7.0); Lymphocytes # (auto) 4.2 uL; Lymphocytes % (auto) 35.1 % (10.0-50.0); Mean Corpuscular Hgb Conc. 31.9 g/dL (32.0-36.0); Monocytes % (auto) 5.1 % (0.0-12.0); Neutrophils # (auto) 6.8 uL; Neutrophils % (auto) 56.6 % (37.0-80.0); Platelet Count (auto) 640 10^3/uL (140-450); Red Blood Cells 4.31 10^6/uL (4.0-5.20)
[2017-10-18 01:43] LABS: Albumin 3.4 g/dL (3.4-5.0); BUN/Creatinine Ratio 14.8; Calcium 9.2 mg/dL (8.5-10.1); Potassium 3.3 mmol/L (3.5-5.1)
[2017-10-18 01:47] LABS: Bilirubin, Total 0.2 mg/dL (0.2-1.0); Total Protein 9.3 g/dL (6.4-8.2)
[2017-10-18 02:53] LABS: Urine Bacteria FEW /hpf (None Seen); Urine Blood 3+ /uL (Negative); Urine Hyaline Cast FEW /lpf (0 - 2); Urine Mucus FEW (None Seen); Urine Specific Gravity 1.024 (1.001-1.035); Urine WBC 14 /hpf (0 - 5)
[2017-10-18] MEDS ORDERED: SODIUM CHLORIDE 0.9% 1,000 ML IV ONE (04:15)
[2017-10-18] MEDS ORDERED: ceFAZolin 1GM/50ML 50 ML IV ONE (04:15)
[2017-10-18] MEDS ORDERED: PROMETHAZINE HCL 25 MG/ML 1ML IV ONE (04:15)
[2017-10-18] MEDS ORDERED: VANCOMYCIN 1GM/250ML 250 ML IV ONE (04:15)
[2017-10-18] MEDS ORDERED: MORPHINE SULFATE 4 MG/ML SYR/VIAL IV ONE (04:15)
[2017-10-18] MEDS ORDERED: cefTRIAXone 1GM/10ml IVPUSH 10 ML IV ONE (04:15)
[2017-10-18] MEDS ORDERED: ACETAMINOPHEN 325 MG TAB PO PRN (09:15)
[2017-10-18] MEDS ORDERED: GLIMEPIRIDE 2 MG TAB PO ONE (09:15)
[2017-10-18] MEDS ORDERED: DOCUSATE SOD 100 MG CAP PO PRN (09:15)
[2017-10-18] MEDS ORDERED: DEXTROSE (50%) 50ML SYRG IV PRN (09:15)
[2017-10-18] MEDS ORDERED: VANCOMYCIN PER PHARMACY 0 MG IV SCH (09:15)
[2017-10-18] MEDS ORDERED: INSULIN LANTUS (GLARGINE) 1 /0.01ml (100units/ml) SC ONE (09:15)
[2017-10-18] MEDS ORDERED: POTASSIUM CHLORIDE 8 MEQ TAB PO ONE (09:15)
[2017-10-18] MEDS ORDERED: NITROGLYCERIN 0.4 MG SL TAB SL PRN (09:15)
[2017-10-18] MEDS ORDERED: cloNIDine HCL 0.1 MG TAB PO PRN (09:30)
[2017-10-18] MEDS: PATIENTS OWN MEDICATION PO SCH (10:00)
[2017-10-18] MEDS: MULTIPLE VITAMIN TAB PO SCH (10:08)
[2017-10-18] MEDS: amLODIPine BESYLATE 5 MG TAB PO SCH (10:24)
[2017-10-18] MEDS: FAMOTIDINE 20 MG TAB PO SCH ×2 (10:25→21:41)
[2017-10-18] MEDS: LISINOPRIL 20 MG TAB PO SCH (10:25)
[2017-10-18] MEDS: HYDROcodone-ACET 5/325MG TAB PO PRN ×3 (11:12→21:43)
[2017-10-18 11:32] VITALS: BP 126/67
[2017-10-18] MEDS: InsuLIN REG 1unit/0.01ml Soln (100units/ml) SC SCH ×3 (11:39→21:51)
[2017-10-18] MEDS: ACCU-CHEK COMFORT CURVE STRIP VI SCH ×3 (11:39→21:42)
[2017-10-18] MEDS ORDERED: LAM100T PO (11:44)
[2017-10-18] MEDS ORDERED: AML5T PO (11:44)
[2017-10-18 13:07] VITALS: BP 126/67
[2017-10-18] MEDS: SODIUM CHLOR 0.9% PF (SALINE LOCK) 10ML VIAL IV SCH ×2 (14:00→21:41)
[2017-10-18 16:58] VITALS: BP 113/78
[2017-10-18] MEDS: VANCOMYCIN 750 MG in D5W 5% 250 ML IV SCH (17:03)
[2017-10-18] MEDS: SOD CHL 0.45% WITH 20MEQ KCL 1,000 ML IV SCH (18:31)
[2017-10-18] MEDS: MORPHINE SULFATE 4 MG/ML SYR/VIAL IV PRN ×2 (18:55→23:22)
[2017-10-18 22:00] VITALS: BP 138/77
[2017-10-18] MEDS: PROMETHAZINE HCL 25 MG/ML 1ML IV PRN (23:23)
[2017-10-19] MEDS: HYDROcodone-ACET 5/325MG TAB PO PRN ×4 (02:01→20:07)
[2017-10-19] MEDS: SOD CHL 0.45% WITH 20MEQ KCL 1,000 ML IV SCH ×2 (04:05→15:21)
[2017-10-19 05:00] VITALS: BP 147/80
[2017-10-19] MEDS: VANCOMYCIN 750 MG in D5W 5% 250 ML IV SCH ×2 (05:01→17:06)
[2017-10-19] MEDS: MORPHINE SULFATE 4 MG/ML SYR/VIAL IV PRN ×4 (05:15→22:02)
[2017-10-19] MEDS: PROMETHAZINE HCL 25 MG/ML 1ML IV PRN ×2 (05:16→17:06)
[2017-10-19 05:35] LABS: Basophils # (auto) 0.1 uL; Eosinophils # (auto) 0.2 uL; Hemoglobin 9.3 g/dL (12.2-16.2); Lymphocytes # (auto) 3.3 uL; Mean Corpuscular Hemoglobin 24.5 pg (28.0-32.0); Monocytes # (auto) 0.5 uL; Monocytes % (auto) 6.2 % (0.0-12.0)
[2017-10-19] MEDS: SODIUM CHLOR 0.9% PF (SALINE LOCK) 10ML VIAL IV SCH ×3 (05:35→21:42)
[2017-10-19 05:38] LABS: Basophils % (auto) 0.8 % (0.0-2.0); Eosinophils % (auto) 2.7 % (0.0-7.0); Hematocrit 28.9 % (36.0-46.0); Lymphocytes % (auto) 44.7 % (10.0-50.0); Mean Corpuscular Hgb Conc. 32.3 g/dL (32.0-36.0); Mean Corpuscular Volume 75.7 fL (80.0-100.0); Neutrophils # (auto) 3.4 uL; Neutrophils % (auto) 45.6 % (37.0-80.0); Nucleated Red Blood Cells % 0.1 %; Platelet Count (auto) 457 10^3/uL (140-450); Red Blood Cells 3.81 10^6/uL (4.0-5.20); Red Cell Distribution Width 18.2 % (11.8-14.3); White Blood Cell 7.4 10^3/uL (4.4-10.8)
[2017-10-19 06:05] LABS: Albumin 2.6 g/dL (3.4-5.0); BUN/Creatinine Ratio 15.7; Bilirubin, Total 0.2 mg/dL (0.2-1.0); Phosphorus 2.7 mg/dL (2.5-4.90); Potassium 3.7 mmol/L (3.5-5.1); Total Protein 7.4 g/dL (6.4-8.2); Uric Acid 4.8 mg/dL (2.6-6.0)
[2017-10-19] MEDS: GLIMEPIRIDE 2 MG TAB PO SCH (06:26)
[2017-10-19] MEDS: INSULIN LANTUS (GLARGINE) 1 /0.01ml (100units/ml) SC SCH (06:26)
[2017-10-19] MEDS: ACCU-CHEK COMFORT CURVE STRIP VI SCH ×4 (06:27→21:43)
[2017-10-19] MEDS: InsuLIN REG 1unit/0.01ml Soln (100units/ml) SC SCH ×4 (06:27→22:03)
[2017-10-19 08:00] VITALS: BP 149/83
[2017-10-19 08:18] VITALS: BP 149/83
[2017-10-19] MEDS: cefTRIAXone 1GM/10ml IVPUSH 10 ML IV SCH (09:10)
[2017-10-19] MEDS: amLODIPine BESYLATE 5 MG TAB PO SCH (09:11)
[2017-10-19] MEDS: FAMOTIDINE 20 MG TAB PO SCH ×2 (09:11→21:43)
[2017-10-19] MEDS: MULTIPLE VITAMIN TAB PO SCH (09:11)
[2017-10-19] MEDS: LISINOPRIL 20 MG TAB PO SCH (09:11)
[2017-10-19] MEDS: PATIENTS OWN MEDICATION PO SCH (09:15)
[2017-10-19 11:35] LABS: Protein, Urine 24.9 mg/dL (0.0-11.9)
[2017-10-19 13:00] VITALS: BP 142/84
[2017-10-19 16:56] VITALS: BP 164/92
[2017-10-19 22:00] VITALS: BP 156/84
[2017-10-20] MEDS: TEMAZEPAM 15 MG CAP PO PRN ×2 (01:24→21:46)
[2017-10-20] MEDS: HYDROcodone-ACET 5/325MG TAB PO PRN ×2 (01:28→19:36)
[2017-10-20] MEDS: MORPHINE SULFATE 4 MG/ML SYR/VIAL IV PRN ×5 (03:45→20:43)
[2017-10-20] MEDS: VANCOMYCIN 750 MG in D5W 5% 250 ML IV SCH ×2 (05:03→16:50)
[2017-10-20] MEDS: SOD CHL 0.45% WITH 20MEQ KCL 1,000 ML IV SCH ×3 (05:03→20:42)
[2017-10-20 05:55] VITALS: BP 150/83
[2017-10-20 05:55] LABS: Albumin 2.8 g/dL (3.4-5.0); BUN/Creatinine Ratio 10.7; Bilirubin, Total 0.1 mg/dL (0.2-1.0); Calcium 7.4 mg/dL (8.5-10.1); Potassium 3.7 mmol/L (3.5-5.1); Total Protein 7.9 g/dL (6.4-8.2)
[2017-10-20] MEDS: SODIUM CHLOR 0.9% PF (SALINE LOCK) 10ML VIAL IV SCH ×3 (06:00→20:54)
[2017-10-20] MEDS: ACCU-CHEK COMFORT CURVE STRIP VI SCH ×4 (06:43→21:35)
[2017-10-20 07:03] LABS: Sodium Urine 38 mmol/L (40-220)
[2017-10-20] MEDS: GLIMEPIRIDE 2 MG TAB PO SCH (07:13)
[2017-10-20] MEDS: InsuLIN REG 1unit/0.01ml Soln (100units/ml) SC SCH ×4 (07:14→21:36)
[2017-10-20] MEDS: INSULIN LANTUS (GLARGINE) 1 /0.01ml (100units/ml) SC SCH (07:14)
[2017-10-20 08:00] VITALS: BP 183/99
[2017-10-20] MEDS: PATIENTS OWN MEDICATION PO SCH (08:54)
[2017-10-20] MEDS: cefTRIAXone 1GM/10ml IVPUSH 10 ML IV SCH (08:54)
[2017-10-20] MEDS: MULTIPLE VITAMIN TAB PO SCH (08:58)
[2017-10-20] MEDS: amLODIPine BESYLATE 5 MG TAB PO SCH (08:59)
[2017-10-20] MEDS: FAMOTIDINE 20 MG TAB PO SCH ×2 (08:59→21:42)
[2017-10-20 09:00] VITALS: BP 183/99
[2017-10-20] MEDS: LISINOPRIL 20 MG TAB PO SCH (09:00)
[2017-10-20 13:00] VITALS: BP 170/99
[2017-10-20 16:43] VITALS: BP 162/97
[2017-10-20] MEDS: PROMETHAZINE HCL 25 MG/ML 1ML IV PRN (21:02)
[2017-10-20 22:00] VITALS: BP 156/92
[2017-10-21] MEDS: MORPHINE SULFATE 4 MG/ML SYR/VIAL IV PRN ×8 (00:35→23:58)
[2017-10-21] MEDS: VANCOMYCIN 1GM/250ML 250 ML IV SCH ×2 (04:51→17:28)
[2017-10-21 05:00] VITALS: BP 155/93
[2017-10-21 05:43] VITALS: BP 131/70
[2017-10-21] MEDS: SOD CHL 0.45% WITH 20MEQ KCL 1,000 ML IV SCH ×2 (06:00→16:25)
[2017-10-21] MEDS: SODIUM CHLOR 0.9% PF (SALINE LOCK) 10ML VIAL IV SCH ×3 (06:19→22:10)
[2017-10-21 06:42] LABS: Albumin 2.7 g/dL (3.4-5.0); Calcium 8.9 mg/dL (8.5-10.1); Potassium 3.4 mmol/L (3.5-5.1)
[2017-10-21 06:45] LABS: BUN/Creatinine Ratio 9.6; Total Protein 7.6 g/dL (6.4-8.2)
[2017-10-21 06:52] LABS: Bilirubin, Total 0.1 mg/dL (0.2-1.0)
[2017-10-21] MEDS: InsuLIN REG 1unit/0.01ml Soln (100units/ml) SC SCH ×4 (07:00→21:57)
[2017-10-21] MEDS: INSULIN LANTUS (GLARGINE) 1 /0.01ml (100units/ml) SC SCH (07:00)
[2017-10-21] MEDS: GLIMEPIRIDE 2 MG TAB PO SCH (07:15)
[2017-10-21] MEDS: ACCU-CHEK COMFORT CURVE STRIP VI SCH ×4 (07:20→22:10)
[2017-10-21 09:00] VITALS: BP 156/76
[2017-10-21] MEDS: PROMETHAZINE HCL 25 MG/ML 1ML IV PRN ×4 (09:33→22:11)
[2017-10-21] MEDS: cefTRIAXone 1GM/10ml IVPUSH 10 ML IV SCH (09:33)
[2017-10-21] MEDS: MULTIPLE VITAMIN TAB PO SCH (09:34)
[2017-10-21] MEDS: FAMOTIDINE 20 MG TAB PO SCH ×2 (09:34→22:10)
[2017-10-21] MEDS: LISINOPRIL 20 MG TAB PO SCH (09:34)
[2017-10-21] MEDS: amLODIPine BESYLATE 5 MG TAB PO SCH (09:35)
[2017-10-21] MEDS: PATIENTS OWN MEDICATION PO SCH (09:45)
[2017-10-21 12:57] VITALS: BP 157/84
[2017-10-21 17:05] VITALS: BP 163/85
[2017-10-21] MEDS: HYDROcodone-ACET 7.5/325MG TAB PO PRN (22:11)
[2017-10-22] MEDS: SOD CHL 0.45% WITH 20MEQ KCL 1,000 ML IV SCH ×3 (02:00→22:00)
[2017-10-22 05:00] VITALS: BP 149/77
[2017-10-22] MEDS: VANCOMYCIN 1GM/250ML 250 ML IV SCH ×2 (05:09→16:44)
[2017-10-22] MEDS: MORPHINE SULFATE 4 MG/ML SYR/VIAL IV PRN ×6 (05:09→23:13)
[2017-10-22] MEDS: SODIUM CHLOR 0.9% PF (SALINE LOCK) 10ML VIAL IV SCH ×3 (06:14→22:29)
[2017-10-22] MEDS: InsuLIN REG 1unit/0.01ml Soln (100units/ml) SC SCH ×4 (06:16→22:00)
[2017-10-22] MEDS: ACCU-CHEK COMFORT CURVE STRIP VI SCH ×4 (06:17→22:29)
[2017-10-22] MEDS: GLIMEPIRIDE 2 MG TAB PO SCH (06:35)
[2017-10-22] MEDS: INSULIN LANTUS (GLARGINE) 1 /0.01ml (100units/ml) SC SCH (06:35)
[2017-10-22] MEDS: cefTRIAXone 1GM/10ml IVPUSH 10 ML IV SCH (09:02)
[2017-10-22] MEDS: PROMETHAZINE HCL 25 MG/ML 1ML IV PRN (09:08)
[2017-10-22] MEDS: MULTIPLE VITAMIN TAB PO SCH (09:26)
[2017-10-22] MEDS: amLODIPine BESYLATE 5 MG TAB PO SCH (09:29)
[2017-10-22] MEDS: FAMOTIDINE 20 MG TAB PO SCH ×2 (09:30→22:00)
[2017-10-22 09:31] VITALS: BP 150/76
[2017-10-22] MEDS: LISINOPRIL 20 MG TAB PO SCH (09:31)
[2017-10-22] MEDS: PATIENTS OWN MEDICATION PO SCH (10:00)
[2017-10-22] MEDS: HYDROcodone-ACET 7.5/325MG TAB PO PRN (10:38)
[2017-10-22 12:39] VITALS: BP 132/87
[2017-10-22 17:16] VITALS: BP 159/77
[2017-10-23] MEDS: TEMAZEPAM 15 MG CAP PO PRN (01:27)
[2017-10-23] MEDS: MORPHINE SULFATE 4 MG/ML SYR/VIAL IV PRN ×6 (02:50→22:28)
[2017-10-23] MEDS: VANCOMYCIN 1GM/250ML 250 ML IV SCH ×2 (04:41→18:51)
[2017-10-23 05:00] VITALS: BP 151/84
[2017-10-23] MEDS: SODIUM CHLOR 0.9% PF (SALINE LOCK) 10ML VIAL IV SCH ×3 (06:17→21:05)
[2017-10-23] MEDS: ACCU-CHEK COMFORT CURVE STRIP VI SCH ×4 (06:18→21:22)
[2017-10-23] MEDS: InsuLIN REG 1unit/0.01ml Soln (100units/ml) SC SCH ×4 (06:18→21:22)
[2017-10-23] MEDS: GLIMEPIRIDE 2 MG TAB PO SCH (06:28)
[2017-10-23] MEDS: INSULIN LANTUS (GLARGINE) 1 /0.01ml (100units/ml) SC SCH (06:29)
[2017-10-23 06:45] LABS: Hematocrit 29.6 % (36.0-46.0); Hemoglobin 9.5 g/dL (12.2-16.2); Mean Corpuscular Hemoglobin 24.1 pg (28.0-32.0); Red Blood Cells 3.94 10^6/uL (4.0-5.20)
[2017-10-23 06:47] LABS: Mean Corpuscular Hgb Conc. 32.1 g/dL (32.0-36.0); Platelet Count (auto) 528 10^3/uL (140-450); Red Cell Distribution Width 18.5 % (11.8-14.3); White Blood Cell 9.5 10^3/uL (4.4-10.8)
[2017-10-23 07:01] LABS: Albumin 2.8 g/dL (3.4-5.0); Calcium 8.9 mg/dL (8.5-10.1); Potassium 3.7 mmol/L (3.5-5.1)
[2017-10-23 07:03] LABS: BUN/Creatinine Ratio 10.5
[2017-10-23 07:06] LABS: Bilirubin, Total 0.2 mg/dL (0.2-1.0); Total Protein 7.9 g/dL (6.4-8.2)
[2017-10-23 07:08] LABS: Band Neutrophils % (manual) 0; Basophils % (manual) 0 (0.0-2.0); Blast Cells 0; Metamyelocytes % 0; Myelocytes % 0; Promyelocytes % 0; Reactive Lymphocytes 0
[2017-10-23 07:52] LABS: Eosinophils % (manual) 3 (0-7); Lymphocytes % (manual) 29 (10.0-50.0); Monocytes % (manual) 2 (0-12)
[2017-10-23 08:00] VITALS: BP 150/87
[2017-10-23] MEDS: SOD CHL 0.45% WITH 20MEQ KCL 1,000 ML IV SCH ×2 (08:00→18:04)
[2017-10-23 08:19] VITALS: BP 150/87
[2017-10-23] MEDS ORDERED: MORPHINE SULFATE 4 MG/ML SYR/VIAL ONE ×2 (08:31→12:34)
[2017-10-23] MEDS: cefTRIAXone 1GM/10ml IVPUSH 10 ML IV SCH (08:46)
[2017-10-23] MEDS: PROMETHAZINE HCL 25 MG/ML 1ML IV PRN ×2 (08:46→12:45)
[2017-10-23] MEDS: PATIENTS OWN MEDICATION PO SCH (10:00)
[2017-10-23] MEDS: amLODIPine BESYLATE 5 MG TAB PO SCH (10:38)
[2017-10-23] MEDS: MULTIPLE VITAMIN TAB PO SCH (10:39)
[2017-10-23] MEDS: LISINOPRIL 20 MG TAB PO SCH (10:40)
[2017-10-23] MEDS: FAMOTIDINE 20 MG TAB PO SCH ×2 (10:40→21:05)
[2017-10-23 11:51] VITALS: BP 141/76
[2017-10-23] MEDS: HYDROcodone-ACET 10/325MG TAB PO PRN ×2 (14:18→19:52)
[2017-10-23 17:09] VITALS: BP 154/77
[2017-10-23 20:47] LABS: INR 0.92 (0.9-1.15); Partial Thromboplastin Time 27.6 sec (22.64-33.71)
[2017-10-23 22:01] VITALS: BP 159/95
[2017-10-24] VITALS (7 sets, daily range): BP systolic 137–158; BP diastolic 78–87
[2017-10-24] MEDS: MORPHINE SULFATE 4 MG/ML SYR/VIAL IV PRN ×6 (03:57→23:53)
[2017-10-24] MEDS: SOD CHL 0.45% WITH 20MEQ KCL 1,000 ML IV SCH ×3 (04:00→23:53)
[2017-10-24] MEDS: VANCOMYCIN 1GM/250ML 250 ML IV SCH ×2 (04:47→18:42)
[2017-10-24 06:02] LABS: Basophils # (auto) 0.1 uL; Eosinophils # (auto) 0.2 uL; Hemoglobin 9.2 g/dL (12.2-16.2); Lymphocytes # (auto) 3.1 uL; Neutrophils # (auto) 5.2 uL
[2017-10-24] MEDS: HYDROcodone-ACET 10/325MG TAB PO PRN ×3 (06:03→21:40)
[2017-10-24 06:04] LABS: Basophils % (auto) 1.1 % (0.0-2.0); Eosinophils % (auto) 2.3 % (0.0-7.0); Hematocrit 28.6 % (36.0-46.0); Lymphocytes % (auto) 34.3 % (10.0-50.0); Mean Corpuscular Volume 74.8 fL (80.0-100.0); Monocytes # (auto) 0.4 uL; Monocytes % (auto) 4.9 % (0.0-12.0); Neutrophils % (auto) 57.4 % (37.0-80.0); Platelet Count (auto) 502 10^3/uL (140-450); Red Blood Cells 3.82 10^6/uL (4.0-5.20); Red Cell Distribution Width 17.9 % (11.8-14.3)
[2017-10-24] MEDS: InsuLIN REG 1unit/0.01ml Soln (100units/ml) SC SCH ×4 (06:11→21:56)
[2017-10-24] MEDS: ACCU-CHEK COMFORT CURVE STRIP VI SCH ×4 (06:11→21:40)
[2017-10-24] MEDS: GLIMEPIRIDE 2 MG TAB PO SCH (06:11)
[2017-10-24] MEDS: SODIUM CHLOR 0.9% PF (SALINE LOCK) 10ML VIAL IV SCH ×4 (06:12→21:39)
[2017-10-24] MEDS: INSULIN LANTUS (GLARGINE) 1 /0.01ml (100units/ml) SC SCH (06:12)
[2017-10-24 06:32] LABS: BUN/Creatinine Ratio 9.6; Calcium 8.4 mg/dL (8.5-10.1); Potassium 3.7 mmol/L (3.5-5.1)
[2017-10-24] MEDS: cefTRIAXone 1GM/10ml IVPUSH 10 ML IV SCH (08:24)
[2017-10-24] MEDS: PATIENTS OWN MEDICATION PO SCH (10:00)
[2017-10-24] MEDS: MULTIPLE VITAMIN TAB PO SCH (10:21)
[2017-10-24] MEDS: amLODIPine BESYLATE 5 MG TAB PO SCH (10:22)
[2017-10-24] MEDS: LISINOPRIL 20 MG TAB PO SCH (10:22)
[2017-10-24] MEDS: FAMOTIDINE 20 MG TAB PO SCH ×2 (10:22→21:39)
[2017-10-24] MEDS ORDERED: LIDOCAINE 1% HCL (LOCAL ANESTH.) INJ 20ML MDV ID ONE (15:15)
[2017-10-24] MEDS: TEMAZEPAM 15 MG CAP PO PRN (22:30)
[2017-10-24] MEDS: PROMETHAZINE HCL 25 MG/ML 1ML IV PRN (23:53)
[2017-10-25] VITALS (7 sets, daily range): BP systolic 137–162; BP diastolic 72–98
[2017-10-25] MEDS: VANCOMYCIN 1GM/250ML 250 ML IV SCH ×2 (04:30→18:41)
[2017-10-25] MEDS: MORPHINE SULFATE 4 MG/ML SYR/VIAL IV PRN ×6 (04:30→21:46)
[2017-10-25] MEDS: SODIUM CHLOR 0.9% PF (SALINE LOCK) 10ML VIAL IV SCH ×5 (05:37→21:45)
[2017-10-25] MEDS: HYDROcodone-ACET 10/325MG TAB PO PRN ×2 (06:51→20:44)
[2017-10-25] MEDS: ACCU-CHEK COMFORT CURVE STRIP VI SCH ×4 (06:51→21:45)
[2017-10-25] MEDS: InsuLIN REG 1unit/0.01ml Soln (100units/ml) SC SCH ×4 (06:57→22:00)
[2017-10-25] MEDS: GLIMEPIRIDE 2 MG TAB PO SCH (06:57)
[2017-10-25] MEDS: INSULIN LANTUS (GLARGINE) 1 /0.01ml (100units/ml) SC SCH (07:02)
[2017-10-25 07:32] LABS: Basophils # (auto) 0.1 uL; Basophils % (auto) 1.2 % (0.0-2.0); Eosinophils # (auto) 0.2 uL; Eosinophils % (auto) 2.8 % (0.0-7.0); Hematocrit 26.2 % (36.0-46.0); Hemoglobin 8.5 g/dL (12.2-16.2); Lymphocytes # (auto) 2.2 uL; Lymphocytes % (auto) 25.8 % (10.0-50.0); Mean Corpuscular Hemoglobin 24.3 pg (28.0-32.0); Mean Corpuscular Hgb Conc. 32.4 g/dL (32.0-36.0); Monocytes # (auto) 0.4 uL; Monocytes % (auto) 5.2 % (0.0-12.0); Neutrophils # (auto) 5.6 uL; Platelet Count (auto) 474 10^3/uL (140-450); Red Cell Distribution Width 17.9 % (11.8-14.3); White Blood Cell 8.6 10^3/uL (4.4-10.8)
[2017-10-25 08:16] LABS: BUN/Creatinine Ratio 10.2; Calcium 8.2 mg/dL (8.5-10.1); Potassium 3.7 mmol/L (3.5-5.1)
[2017-10-25] MEDS: cefTRIAXone 1GM/10ml IVPUSH 10 ML IV SCH (08:54)
[2017-10-25] MEDS: PATIENTS OWN MEDICATION PO SCH (09:37)
[2017-10-25] MEDS: MULTIPLE VITAMIN TAB PO SCH (09:38)
[2017-10-25] MEDS: FAMOTIDINE 20 MG TAB PO SCH ×2 (09:39→21:45)
[2017-10-25] MEDS: amLODIPine BESYLATE 5 MG TAB PO SCH (09:39)
[2017-10-25] MEDS: LISINOPRIL 20 MG TAB PO SCH (09:39)
[2017-10-25] MEDS: SOD CHL 0.45% WITH 20MEQ KCL 1,000 ML IV SCH ×2 (11:47→20:41)
[2017-10-26] VITALS (7 sets, daily range): BP systolic 140–168; BP diastolic 72–84
[2017-10-26] MEDS: MORPHINE SULFATE 4 MG/ML SYR/VIAL IV PRN ×7 (00:44→22:04)
[2017-10-26 05:21] LABS: Basophils # (auto) 0.1 uL; Eosinophils # (auto) 0.2 uL; Monocytes # (auto) 0.5 uL; Neutrophils # (auto) 3.9 uL; Nucleated Red Blood Cells % 0.1 %
[2017-10-26 05:23] LABS: Hematocrit 26.3 % (36.0-46.0); Hemoglobin 8.5 g/dL (12.2-16.2); Lymphocytes # (auto) 2.9 uL; Mean Corpuscular Hemoglobin 24.1 pg (28.0-32.0); Mean Corpuscular Hgb Conc. 32.4 g/dL (32.0-36.0); Mean Corpuscular Volume 74.5 fL (80.0-100.0); Monocytes % (auto) 6.9 % (0.0-12.0); Neutrophils % (auto) 51.1 % (37.0-80.0); Platelet Count (auto) 453 10^3/uL (140-450); Red Blood Cells 3.53 10^6/uL (4.0-5.20); Red Cell Distribution Width 17.7 % (11.8-14.3); White Blood Cell 7.6 10^3/uL (4.4-10.8)
[2017-10-26 05:47] LABS: Calcium 8.9 mg/dL (8.5-10.1); Potassium 3.9 mmol/L (3.5-5.1)
[2017-10-26 05:49] LABS: BUN/Creatinine Ratio 9.7
[2017-10-26] MEDS: SOD CHL 0.45% WITH 20MEQ KCL 1,000 ML IV SCH ×2 (05:58→16:00)
[2017-10-26] MEDS: SODIUM CHLOR 0.9% PF (SALINE LOCK) 10ML VIAL IV SCH ×5 (05:58→22:03)
[2017-10-26] MEDS: VANCOMYCIN 1GM/250ML 250 ML IV SCH ×2 (05:58→18:13)
[2017-10-26] MEDS: GLIMEPIRIDE 2 MG TAB PO SCH (06:32)
[2017-10-26] MEDS: ACCU-CHEK COMFORT CURVE STRIP VI SCH ×4 (06:32→22:03)
[2017-10-26] MEDS: InsuLIN REG 1unit/0.01ml Soln (100units/ml) SC SCH ×3 (06:32→18:13)
[2017-10-26] MEDS: INSULIN LANTUS (GLARGINE) 1 /0.01ml (100units/ml) SC SCH (06:33)
[2017-10-26] MEDS: cefTRIAXone 1GM/10ml IVPUSH 10 ML IV SCH (08:45)
[2017-10-26] MEDS: MULTIPLE VITAMIN TAB PO SCH (09:46)
[2017-10-26] MEDS: amLODIPine BESYLATE 5 MG TAB PO SCH (09:46)
[2017-10-26] MEDS: FAMOTIDINE 20 MG TAB PO SCH ×2 (09:46→22:03)
[2017-10-26] MEDS: LISINOPRIL 20 MG TAB PO SCH (09:46)
[2017-10-26] MEDS: PATIENTS OWN MEDICATION PO SCH (09:47)
== END 2017-10-26 22:40 | disposition short-term general hospital (02) | DRG 344 ==
LOC: ER 23:54 → TELE 23:55 → TELE-WESTW 10-18 10:53
PROVIDERS: ADMIT Internal Medicine; ATTEND Internal Medicine
PROC: 02HV33Z Insertion of Infusion Device into Superior Vena Cava, Percutaneous Approach (ICD-10-PCS; principal; 2017-10-24)
DX: M46.26 Osteomyelitis of vertebra, lumbar region (principal); N17.0 Acute kidney failure with tubular necrosis; E87.2 Acidosis; D50.9 Iron deficiency anemia, unspecified; F17.210 Nicotine dependence, cigarettes, uncomplicated; I12.9 Hypertensive chronic kidney disease with stage 1 through stage 4 chronic kidney disease, or unspecified chronic kidney disease; E11.21 Type 2 diabetes mellitus with diabetic nephropathy; N18.3 Chronic kidney disease, stage 3 (moderate); Z68.41 Body mass index [BMI] 40.0-44.9, adult; M46.46 Discitis, unspecified, lumbar region; N25.89 Other disorders resulting from impaired renal tubular function; E87.6 Hypokalemia; E11.22 Type 2 diabetes mellitus with diabetic chronic kidney disease; K42.9 Umbilical hernia without obstruction or gangrene; N20.0 Calculus of kidney; G89.29 Other chronic pain; E66.9 Obesity, unspecified; M48.061 Spinal stenosis, lumbar region without neurogenic claudication; N28.1 Cyst of kidney, acquired; D27.0 Benign neoplasm of right ovary; Z82.49 Family history of ischemic heart disease and other diseases of the circulatory system; Z83.3 Family history of diabetes mellitus; Z85.6 Personal history of leukemia; Z86.32 Personal history of gestational diabetes; Z88.8 Allergy status to other drugs, medicaments and biological substances; Z91.013 Allergy to seafood; Z79.4 Long term (current) use of insulin; Z79.899 Other long term (current) drug therapy; Z71.3 Dietary counseling and surveillance
CPT/HCPCS: 36415; 36569; 71045; 72158; 74176; 80048; 80053; 80202; 81001; 82150; 82436; 82570; 82962; 83036; 83540; 83690; 83735; 84100; 84133; 84156; 84300; 84443; 84484; 84550; 85007; 85025; 85027; 85610; 85730; 87040; 87081; 87086; 96365; 96368; 96375; J0690; J1815; J7060

== ENCOUNTER 2017-11-30 23:31 | Emergency (ER) | payer MEDICAID ==
[~2017-11-30] VITALS: Ht 172.7 cm; Wt 93.9 kg
[~2017-11-30 23:31] MED LIST changes: +AML5T PO; +LAM100T PO
[2017-11-30 23:40] VITALS: BP 166/82
== END 2017-12-01 00:59 | disposition left against medical advice (07) ==
LOC: ER 23:33
DX: M79.602 Pain in left arm (principal); Z53.21 Procedure and treatment not carried out due to patient leaving prior to being seen by health care provider
CPT/HCPCS: 71045; 81025; 82962

== ENCOUNTER 2017-12-01 13:22 | Emergency (ER) | payer MEDICAID ==
[~2017-12-01] VITALS: Ht 152.4 cm; Wt 93.9 kg
[2017-12-01] MEDS ORDERED: LIDOCAINE 1% HCL (LOCAL ANESTH.) INJ 20ML MDV ID ONE (15:15)
[2017-12-01 16:27] VITALS: BP 129/81
[2017-12-01] MEDS ORDERED: SODIUM CHLOR 0.9% PF (SALINE LOCK) 10ML VIAL IV SCH (22:00)
== END 2017-12-01 17:43 | disposition home or self-care (01) ==
LOC: ER 13:22
DX: T82.49XA Other complication of vascular dialysis catheter, initial encounter (principal); E11.9 Type 2 diabetes mellitus without complications; I10 Essential (primary) hypertension; F17.210 Nicotine dependence, cigarettes, uncomplicated; Z45.2 Encounter for adjustment and management of vascular access device; Z79.4 Long term (current) use of insulin; Z87.442 Personal history of urinary calculi; Z91.013 Allergy to seafood; Z88.6 Allergy status to analgesic agent
CPT/HCPCS: 36569; 71045; 99285; C1751; J7050

== ENCOUNTER 2017-12-01 23:23 | Emergency (ER) | payer MEDICAID ==
[~2017-12-01] VITALS: Ht 152.4 cm; Wt 89.8 kg
[2017-12-02 02:11] LABS: Hemoglobin 8.7 g/dL (12.2-16.2); Mean Corpuscular Hemoglobin 22.4 pg (28.0-32.0); Mean Corpuscular Hgb Conc. 30.7 g/dL (32.0-36.0); Red Blood Cells 3.87 10^6/uL (4.0-5.20)
[2017-12-02 02:13] LABS: Hematocrit 28.2 % (36.0-46.0); Mean Corpuscular Volume 72.9 fL (80.0-100.0); Platelet Count (auto) 179 10^3/uL (140-450); Red Cell Distribution Width 17.8 % (11.8-14.3); White Blood Cell 8.1 10^3/uL (4.4-10.8)
[2017-12-02 02:24] LABS: Band Neutrophils % (manual) 0; Basophils % (manual) 0 (0.0-2.0); Blast Cells 0; Metamyelocytes % 0; Myelocytes % 0; Promyelocytes % 0; Reactive Lymphocytes 0
[2017-12-02 02:25] LABS: INR 0.91 (0.9-1.15); Partial Thromboplastin Time 20.5 sec (22.64-33.71); Prothrombin Time 9.9 sec (9.37-12.3)
[2017-12-02 02:32] LABS: Alanine Aminotransferase 42 U/L (13-56); Albumin 3.4 g/dL (3.4-5.0); Anion Gap 9 (5-15); Aspartate Aminotransferase 34 U/L (15-37); Blood Urea Nitrogen 22 mg/dL (7-18); Calcium 8.6 mg/dL (8.5-10.1); Carbon Dioxide 21 mmol/L (21-32); Chloride 111 mmol/L (98-107); GFR African American 74 mL/min; GFR Non-African American 61 mL/min; Glucose 160 mg/dL (74-106); Magnesium 1.9 mg/dL (1.6-2.6); Potassium 3.9 mmol/L (3.5-5.1); Sodium 141 mmol/L (136-145)
[2017-12-02 02:38] LABS: Alkaline Phosphatase 133 U/L (45-117); Bilirubin, Total < 0.1 mg/dL (0.2-1.0); Total Protein 7.8 g/dL (6.4-8.2)
[2017-12-02 02:46] LABS: Eosinophils % (manual) 5 (0-7); Lymphocytes % (manual) 43 (10.0-50.0); Monocytes % (manual) 1 (0-12)
[2017-12-02 04:20] VITALS: BP 146/91
== END 2017-12-02 06:09 | disposition home or self-care (01) ==
LOC: ER 23:26
DX: R07.89 Other chest pain (principal); E11.9 Type 2 diabetes mellitus without complications; I10 Essential (primary) hypertension; F17.210 Nicotine dependence, cigarettes, uncomplicated; Z88.8 Allergy status to other drugs, medicaments and biological substances; Z91.013 Allergy to seafood
CPT/HCPCS: 36415; 71045; 80053; 83735; 83880; 84484; 84702; 85007; 85027; 85610; 85730; 93005; 93971

== ENCOUNTER 2018-09-11 07:38 | Emergency (ER) | payer MEDICAID ==
[~2018-09-11] VITALS: Ht 152.4 cm; Wt 83.9 kg
[2018-09-11 07:40] VITALS: BP 185/92
[2018-09-11 10:13] LABS: Urine Bacteria NONE SEEN /hpf (None Seen); Urine Blood Negative /uL (Negative); Urine Specific Gravity 1.015 (1.001-1.035); Urine WBC 4 /hpf (0 - 5)
== END 2018-09-11 11:50 | disposition left against medical advice (07) ==
LOC: ER 07:38
DX: R07.9 Chest pain, unspecified (principal); Z53.21 Procedure and treatment not carried out due to patient leaving prior to being seen by health care provider
CPT/HCPCS: 71046; 81001; 93005